=== PATIENT | male | born 1955 | race Two or more races ===

== ENCOUNTER 2020-07-13 11:01 | Outpatient (REF) | payer MEDICARE, SELFPAY | END 2020-07-13 11:02 | disposition home or self-care (01) | LOC: HO.LAB 11:01 | PROVIDERS: Visit Provider Internal Medicine | DX: Z20.828 Contact with and (suspected) exposure to other viral communicable diseases (principal) | CPT/HCPCS: C9803; U0003 ==

== ENCOUNTER 2021-03-13 15:21 | Outpatient (REF) | payer MEDICARE, SELFPAY ==
--- NOTE | 2021-03-13 16:15 | MHC.AU.ANR ---
Adult Audiological Evaluation Date of Visit: 03/13/21 Reason for Appointment: Audiological re-evaluation due to concern for decreased hearing and tinnitus. Mr. Putnam notes that his tinnitus gradually seems to be getting worse and louder. He notes that the tinnitus can be bothersome and is constant. He was previously tested in 2016 and diagnosed with a bilateral sensorineural hearing loss. 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 Does patient feel they have a hearing loss?: Yes If Yes, Which Ear?: Both Ears Has hearing been tested previously?: Yes Previous Hearing [place] [facility] [place] Normal hearing through 2000 Hz dropping to a mild SNHL at 0618-9725 Hz and rising to a mild loss at 8000 Hz. 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 Medical History: Medical History: High Blood Pressure Medical History (Other): Psoriasis Medication List: methotrexate 2.5 mg, Pravastatin 40 mg, Folic Acid 1 mg, lisinopril 5 mg Otoscopy: Right Ear: Unremarkable Left Ear: Unremarkable Tympanometry: Tympanometry performed due to: To assess integrity of the middle ear system Right Ear: Normal Middle Ear System (Type A) Left Ear: Normal Middle Ear System (Type A) Hearing Evaluation: Transducer(s) Used: Insert Earphones, Bone Conduction Method: Conventional Audiometry Stimuli Used: Pure Tones Right Ear: Description of Hearing: Normal hearing from 250-2000 Hz, sloping to a moderate sensorineural hearing loss from 5942-8844 Hz, and rising to normal hearing at 8000 Hz. Left Ear: Description of Hearing: Normal hearing from 250-2000 Hz, sloping to a moderate sensorineural hearing loss from 6046-5664 Hz, and rising to a mild hearing loss at 8000 Hz. Speech Recognition Threshold (SRT): Method Used: Monitored Live Voice Stimuli Used: Spondee Words Right Ear: 5 dBHL Left Ear: 5 dBHL Word Discrimination: Method: Recorded Lists Word Lists Used: NU-6 Right Ear: 88% at 60 dBHL Left Ear: 88% at 60 dBHL Recommendations: Audiological re-evaluation in one year. Discussed hearing aid candidacy, benefits of hearing aid use, exacerbating factors of tinnitus, and tinnitus management techniques. He is not interested in pursuing hearing aids at this time. Diagnosis: Primary Diagnosis: H90.3 Bilateral Sensorineural Hearing Loss Secondary Diagnosis: H93.13 Tinnitus, Bilateral Services Performed: Services Performed: Comprehensive Audiological Evaluation (CPT 81847) Tympanometry (CPT 56141) Signature: Provider: Johny Irby, CCC-A
== END 2021-03-13 15:22 | disposition home or self-care (01) ==
LOC: HO.SH 15:21
PROVIDERS: Visit Provider Internal Medicine
DX: H93.19 Tinnitus, unspecified ear (principal)
CPT/HCPCS: 92557; 92567

== ENCOUNTER 2021-08-25 11:11 | Outpatient (REF) | payer MEDICARE, SELFPAY ==
--- NOTE | ~2021-08-25 | XR_ITS ---
EXAMINATION: XR SHOULDER, RIGHT CLINICAL INFORMATION: Pain COMPARISON: None TECHNIQUE: AP external rotation, Grashey, scapular Y, and axillary views of the right shoulder. FINDINGS: No acute fracture or dislocation. Severe degenerative changes of the glenohumeral joint with [id number] contact and flattening of the humeral head, as well as broadening of the glenoid, with accompanying subchondral sclerosis and bulky marginal osteophytes along the inferior anatomic neck of the humerus, i.e. 'goat's vazquez' osteophytes. Moderately large acromioclavicular marginal osteophytes present as well. Soft tissues unremarkable. XR/XR shoulder RT min 2V IMPRESSION: Severe glenohumeral arthrosis. Moderate acromioclavicular marginal osteophytosis.
== END 2021-08-25 11:12 | disposition home or self-care (01) ==
LOC: HO.LAB 11:11
PROVIDERS: PCP Internal Medicine; Visit Provider Internal Medicine
DX: M77.8 Other enthesopathies, not elsewhere classified (principal)
CPT/HCPCS: 73030

== ENCOUNTER 2023-07-22 12:20 | Outpatient (AMB) | payer MEDICARE, SELFPAY ==
[2023-07-22 12:33] VITALS: BP 148/82; PULSE 68; O2SAT 98; BMI 32.6
--- NOTE | 2023-07-22 12:33 | A.OFFPC_ITS ---
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 Allergies lisinopril Allergy (Intermediate, Verified 07/22/23 12:35) cough Medication List - Last Reconciled 07/22/23 by Brooklynn Chavarria MD folic acid 1 mg PO DAILY losartan 50 mg PO DAILY methotrexate sodium 7.5 mg PO QWEEK multivitamin 1 tab PO DAILY pravastatin 40 mg PO DAILY Tobacco use date assessed: 07/22/23 Fall risk assessment: No Falls in past year Last assessed Fall Risk: 07/22/23 Dental Screening Dental Screen Date: 07/22/23 Did you have a dental visit in the last 12 months?: No Did you have a dental problem in the last 6 months where you did not have access to dental care?: No HPI Physical exam HPI Details 67-year-old obese male with psoriasis hi story hypercholesterolemia impaired glucose tolerance hypertension last seen in August 2022. Patient is here for physical exam review of the notes had blood work done January 2023 normal B12 elevated blood sugar to 110 renal function 1.3 electrolytes sodium potassium liver function within normal limits LDL goal of less than 130 patient is 131 prostate number is normal thyroid is normal no anemia. Patient follows up with Dermatology 04/13/2022 psoriasis. PAtient states pharamcy changes med to color blue PFSH Medical History (Updated 07/22/23 @ 12:46 by Brooklynn Chavarria MD) Tinnitus Blood pressure elevated without history of HTN Impaired glucose tolerance Vitamin D deficiency Obesity (BMI 30-39.9) Psoriasis Hypercholesterolemia Social History (Updated 01/19/22 @ 16:34 by Brooklynn Chavarria MD) Housing: House Alcohol intake: former Patient Tobacco Use Status: Former Tobacco user Tobacco use type: Cigarette Years Smoked: quit 1975 e-Cigarette/Vaping Use: Never Used Second Hand Smoke Exposure: No service: No Current occupational status: retired Cognitive needs: No Hearing needs: No Vision needs: Yes Questionnaire PHQ-9 Over the last 2 weeks, how often have you been bothered by any of the following problems? 1. Little interest or pleasure in doing things: not at all 2. Feeling down, depressed, or hopeless: not at all 3. Trouble falling or staying asleep, or sleeping too much: not at all 4. Feeling tired or having little energy: not at all 5. Poor appetite or overeating: not at all 6. Feeling bad about yourself - or that you are a failure or have let yourself or your family down: not at all 7. Trouble concentrating on things, such as reading the newspaper or watching television: not at all 8. Moving or speaking so slowly that other people could have noticed. Or the opposite - being so fidgety or restless that you have been moving around a lot more than usual: not at all 9. Thoughts that you would be better off or of hurting yourself in some way: not at all Total score: 0 Depression Screening Interpretation: Negative Depression Screening Done: Yes Source: Developed by Drs. Izaiah Peterson, Rahel Webster, Oli Canales and colleagues, with an educational akua from [employer]. Thrive Questionnaire Date Thrive assessed: 09/04/22 AUDIT C Alcohol Use Questionnaire (AUDIT-C) 1. How often do you have a drink containing alcohol?: Never 2. How many drinks containing alcohol do you have on a typical day when you are drinking?: 1 or 2 3. How often do you have six or more drinks on one occasion?: Never Total Score: 0 TAMRA-7 AMB Questionnaire TAMRA-7 Date TAMRA - 7 assessed: 07/22/23 Feeling nervous, anxious, or on edge: 0 = Not at all Not being able to stop or control worryin = Not at all Worrying too much about different things: 0 = Not at all Trouble relaxin = Not at all Being so restless that it is hard to sit still: 0 = Not at all Becoming easily annoyed or irritable: 0 = Not at all Feeling afraid as if something awful might happen: 0 = Not at all Total TAMRA-7 score (0-4 normal; 5-9 mild; 10-14 moderate; 15-21 severe): 0 Source: Developed by Drs. Izaiah Peterson, Rahel Webster, Oli Canales and colleagues, with an educational akua from [employer]. Review of Systems Const Denies poor appetite and Denies weakness Eyes Denies no additional complaints ENT Reports Normal hearing present, Denies dizziness, Denies nasal congestion, Denies tinnitus and Denies sore throat Card Denies chest pain, Denies syncope, Denies rapid heart rate and Denies dyspnea Resp Denies cough and Denies dyspnea GI Denies change in stool character, Reports constipation, Denies diarrhea, Denies nausea and Denies vomiting Denies dysuria and Denies urinary frequency Neuro Reports Normal hearing present, Denies confusion, Denies dizziness, Denies syncope and Denies weakness Psych Denies confusion Physical exam (Primary Care) Vital Signs: Last Vital Signs Pulse 68 07/22/23 12:33 BP 148/82 H 07/22/23 12:33 Pulse Ox 98 07/22/23 12:33 Oxygen Delivery Method Room Air 07/22/23 12:33 BMI result Body Mass Index 32.6 Tobacco/Smoking Status: Tobacco use Status Tobacco use date assessed 07/22/23 07/22/23 12:37 Patient Tobacco Use Status Former Tobacco user 07/22/23 12:37 Tobacco use type Cigarette 07/22/23 12:37 e-Cigarette/Vaping Use Never Used 07/22/23 12:37 PHQ-9: PHQ-9 Score PHQ-9: Total score 0 07/22/23 12:37 Depression Screening Interpretation: Negative Thrive Assessment: Date of Thrive Assessment Date Thrive assessed 09/04/22 07/22/23 12:37 Const General: No confusion Orientation/consciousness: No confusion HENMT Head: Yes normocephalic Ears: external ears normal and TM's normal bilaterally Face and sinus: Yes normal facial exam Mouth: moist mucous membranes Throat: Yes tonsils normal Eyes Conjunctivae: conjunctivae normal Pupils: Equal, round and reactive pupils present and Pupil accommodation reflex normal Direct Ophthalmoscopy: normal light reflex Neck Neck: No lymphadenopathy Thyroid: Thyroid normal Chest Chest palpation & inspection: normal inspection of the chest Resp Effort & Inspection: normal respiratory effort and no audible wheezes Auscultation: clear to auscultation bilaterally, no crackles, no wheezes and lung sounds not diminished Cardio Rate: regular rate Rhythm: regular rhythm Peripheral pulses: radial pulses present and dorsalis pedis present GI Other: cologuard requested Palpation (GI): no masses Auscultation: normal bowel sounds and normoactive bowel sounds Rectal Exam - Male: Yes deferred Other: decline Skin General skin exam: no rashes or lesions noted Rashes: no rashes Neuro General: No confusion Cranial nerves: Yes Equal, round and reactive pupils present and Yes Normal hearing present Cognition (Neuro): normal cognition Gait exam (Neuro): Normal gait present Motor exam (neuro): 5/5 motor strength present throughout Deep tendon reflexes (DTR's): Right brachioradialis reflex intensity grade: 2+, Left brachioradialis reflex intensity grade: 2+, Right patellar reflex intensity grade: 2+ and Left patellar reflex intensity grade: 2+ Extrem General: No edema Assessment and Plan Assessment & Plan (1) Annual physical exam: Code(s): Z00.00 - Encounter for general adult medical examination without abnormal findings (2) Obesity (BMI 30-39.9): Code(s): E66.9 - Obesity, unspecified Plan: Diet and exercise (3) Psoriasis: Code(s): L40.9 - Psoriasis, unspecified Plan: Continue to follow-up with dermatology (4) Hypercholesterolemia: Code(s): E78.00 - Pure hypercholesterolemia, unspecified Plan: Avoid fried foods, chicken skin, eggs, butter margarine, pastries and meat. Be it pork or beef they have a lot of cholesterol LDL goal of less than 130 and triglyceride of less than 150. January 2023 last blood work on pravastatin 40 mg once a day (5) Colonoscopy refused: Code(s): Z53.20 - Procedure and treatment not carried out because of patient's decision for unspecified reasons (6) Impaired glucose tolerance: Code(s): R73.02 - Impaired glucose tolerance (oral) Plan: Decrease the amount of carbohydrate intake, pasta, bread, rice and potatoes are all sugar and that is aside from all the sweet stuff, remember that fruits are good but they are Sweet also. January 2023 last blood work (7) Hypertension: Code(s): I10 - Essential (primary) hypertension Plan: Continue with blood pressure medication. Decrease salt intake and exercise patient takes losartan 50 mg once a day. advised to monitor BP at home and record (8) Colon cancer screening: Code(s): Z12.11 - Encounter for screening for malignant neoplasm of colon (9) Primary osteoarthritis, right shoulder: Code(s): M19.011 - Primary osteoarthritis, right shoulder Orders: Orders Comprehensive Met. Panel 6 Months R73.02 - Impaired glucose tolerance (oral) Free T4 (Free Thyroxine) 6 Months E78.00 - Pure hypercholesterolemia, unsp ecified Hemoglobin A1c 6 Months R73.02 - Impaired glucose tolerance (oral) Lipid Panel 6 Months E78.00 - Pure hypercholesterolemia, unspecified Thyroid Stimulating Hormone 6 Months E78.00 - Pure hypercholesterolemia, unspecified Vitamin B12 and Folate 6 Months E78.00 - Pure hypercholesterolemia, unspecified Prostate Specific Antigen Scr 6 Months E78.00 - Pure hypercholesterolemia, unspecified Complete Blood Count Auto Diff 6 Months E78.00 - Pure hypercholesterolemia, unspecified Referrals Cologuard Test Z12.11 - Encounter for screening for malignant neoplasm of colon Coding Level of Care Code Est Pt Prev Care >65y(25088) Diagnoses Annual physical exam Z00.00 Obesity (BMI 30-39.9) E66.9 Psoriasis L40.9 Hypercholesterolemia E78.00 Colonoscopy refused Z53.20 Impaired glucose tolerance R73.02 Hypertension I10 Colon cancer screening Z12.11 Primary osteoarthritis, right shoulder M19.011
== END 2023-07-22 13:11 | disposition home or self-care (01) ==
PROVIDERS: PCP Internal Medicine; Visit Provider Internal Medicine
DX: Z00.00 Encounter for general adult medical examination without abnormal findings (principal); E66.9 Obesity, unspecified; Z68.32 Body mass index [BMI] 32.0-32.9, adult; L40.9 Psoriasis, unspecified; E78.00 Pure hypercholesterolemia, unspecified; Z53.20 Procedure and treatment not carried out because of patient's decision for unspecified reasons; R73.02 Impaired glucose tolerance (oral); I10 Essential (primary) hypertension; Z12.11 Encounter for screening for malignant neoplasm of colon; M19.011 Primary osteoarthritis, right shoulder
CPT/HCPCS: 99397

== ENCOUNTER 2023-10-30 14:21 | Outpatient (AMB) | payer MEDICARE, SELFPAY ==
--- NOTE | 2023-10-30 14:23 | MHC.OFFVIS ---
Intake Vital Signs 10/30/23 14:31 Height 5 ft 4 in Weight 190 lb 7.67 oz BMI 32.7 BP 127/76 Blood Pressure Location Lt brachial Position Sitting Pulse 85 Intake Visit Reasons: other fecal abnormalities Intake Note: Patient is seen in office for evaluation and treatment of fecal abnormalities. Pt c/o: states had a stool test done and was refer to GI due to results, denies n/v/d/c, no GI symptoms Residential Case Manager Required: No Accompanied by: Self / Same As Patient Allergies lisinopril Allergy (Intermediate, Verified 10/30/23 14:28) cough HPI other fecal abnormalities HPI Details 68-year-old male here for a preprocedural meeting in the context of a positive Cologuard test to discuss a colonoscopy. He is referred by Brooklynn Chavarria of [facility] [place] primary care. PMX Obesity Hypertension High cholesterol Psoriasis Osteoarthritis of the right shoulder * SURGICAL HISTORY Pt denies * ALLERGIES Lisinopril - cough * [employer] LABS: None in our system since 2019 TODAY'S VISIT This is his first colonoscopy. He had a positive Cologuard test that prompted the referral. He denies any bowel or upper GI problems He denies any cardiac or respiratory problems. He is completely naive to anesthesia and sedation No ID problems. One of his older brothers of a cancer, but he does not know what type, no polyps known. [facility] Medical History (Updated 10/30/23 @ 14:25 by AMY Mccord) Tinnitus Blood pressure elevated without history of HTN Impaired glucose tolerance Vitamin D deficiency Obesity (BMI 30-39.9) Psoriasis Hypercholesterolemia Social History Housing: House Alcohol intake: former Patient Tobacco Use Status: Former Tobacco user Tobacco use type: Cigarette Years Smoked: quit 1975 e-Cigarette/Vaping Use: Never Used Second Hand Smoke Exposure: No service: No Current occupational status: retired Cognitive needs: No Hearing needs: No Vision needs: Yes Review of Systems Const Denies fatigue, Denies fever(s), Denies night sweats, Denies poor appetite and Denies weight loss Eyes Reports requires corrective lenses ENT Reports Normal hearing present, Denies dental pain, Denies dysphagia, Denies hearing loss, Denies mouth pain, Denies odynophagia, Denies throat swelling, Denies tongue swelling and Reports other (Dentition adequate) GI Details: Denies abdominal pain, Denies melena, Denies bloating, Denies hematochezia, Denies constipation, Denies GI cramping, Denies dysphagia, Denies excessive flatus, Denies early satiety, Denies heartburn, Denies diarrhea, Denies nausea, Denies odynophagia, Denies vomiting and Denies hematemesis Skin/Breast Denies pruritus, Denies lesions, Denies rash and Denies jaundice Neuro Reports Normal hearing present and Denies Abnormal speech present Endo Denies fatigue Aller/Immun Denies throat swelling and Denies tongue swelling Physical Exam Vital Signs: Last Vital Signs Pulse 85 10/30/23 14:31 BP 127/76 10/30/23 14:31 BMI result Body Mass Index 32.7 Const General: cooperative, no acute distress, well developed and well groomed Nutritional Appearance: well nourished and obese Orientation/consciousness: oriented to person, oriented to place and oriented to time Limitations: No language barrier HEENT Head: Yes normocephalic and Yes atraumatic Eyes General: appearance normal, both eyes and all related structures Pupils: Equal, round and reactive pupils present Neck Neck: Yes normal visual inspection and Yes no lymphadenopathy Thyroid: Thyroid normal Resp Effort & Inspection: normal respiratory effort and able to speak in complete sentences Auscultation: clear to auscultation bilaterally Cardio Rate: regular rate Rhythm: regular rhythm Heart sounds: Normal, physiologic split S2 sound present Peripheral pulses: radial pulses present and posterior tibial pulses present GI Inspection: No distended, No Abdominal panniculus present and Yes obesity Palpation (GI): Soft to palpation, nontender, no guarding, not rigid and No hepatosplenomegaly present Percussion: Yes normal to percussion Auscultation: normal bowel sounds Rectal Exam - Male: Yes deferred Skin General skin exam: no rashes or lesions noted, turgor normal, skin not dry, no jaundice, No spider nevi and no striae Rashes: no rashes Nails: normal Neuro General: oriented to person, oriented to place and oriented to time Cranial nerves: Yes Equal, round and reactive pupils present and Yes Normal hearing present Speech: No Abnormal speech present Extrem General: Yes normal to inspection, No clubbing, No cyanosis, Yes edema (Mild pitting) and Yes venous stasis dermatitis (Mild) Psych Appearance: grossly normal and well kempt Mental Status: mental status grossly normal Speech and movement: Normal speech and movement present Affect: normal affect Attitude: cooperative Thought process: Normal thought process present and not confabulating Thought content: Normal thought content present Insight: Fair insight present (Psych) Judgement: Fair judgement present (Psych) Assessment & Plan Assessment & Plan (1) Positive colorectal cancer screening using Cologuard test: Code(s): R19.5 - Other fecal abnormalities (2) Pre-op examination: Code(s): Z01.818 - Encounter for other preprocedural examination Plan This is his first colonoscopy. He had a positive Cologuard test that prompted the referral. He denies any bowel or upper GI problems He denies any cardiac or respiratory problems. He is completely naive to anesthesia and sedation No ID problems. One of his older brothers of a cancer, but he does not know what type, no polyps known. Orders: Orders Comprehensive Met. Panel Today R19.5 - Other fecal abnormalities, Z01.818 - Encounter for other preprocedural examination Colonoscopy - GI Use Only Today R19.5 - Other fecal abnormalities, Z01.818 - Encounter for other preprocedural examination Complete Blood Count Auto Diff Today R19.5 - Other fecal abnormalities, Z01.818 - Encounter for other preprocedural examination Medications: New bisacodyl (Dulcolax (bisacodyl)) 10 mg (2 x 5 mg) PO BEDTIME 4 tabs 0RF 2 days peg 3350-electrolytes 236-22.74-6.74 -5.86 gram (Golytely) until fecal effluent is clear; do not exceed a total volume of 2,000 mL 240 mL PO Q10M 4,000 mL 0RF 1 day Z12.11 - Encounter for screening for malignant neoplasm of colon Coding Level of Care Code New Pt Level 3 (26052) Diagnoses Positive colorectal cancer screening using Cologuard test R19.5 Pre-op examination Z01.818
[2023-10-30 14:31] VITALS: BP 127/76; PULSE 85; BMI 32.7
== END 2023-10-30 14:56 | disposition home or self-care (01) ==
PROVIDERS: PCP Internal Medicine; Visit Provider Nurse Practitioner
DX: R19.5 Other fecal abnormalities (principal); Z01.818 Encounter for other preprocedural examination
CPT/HCPCS: 99203

== ENCOUNTER → 2023-10-30 14:21 | Outpatient (BNVA) | payer MEDICARE, SELFPAY | PROVIDERS: PCP Internal Medicine; Visit Provider Nurse Practitioner | DX: Z01.818 Encounter for other preprocedural examination (principal); R19.5 Other fecal abnormalities | CPT/HCPCS: 99202 ==

== ENCOUNTER 2024-01-21 13:12 | Outpatient (AMB) | payer MEDICARE, SELFPAY ==
--- NOTE | 2024-01-21 13:30 | MHC.PC.OV ---
Vital Signs 01/21/24 13:31 Height 5 ft 4 in Weight 190 lb BMI 32.6 BP 138/70 Blood Pressure Location Lt brachial Position Sitting Pulse 66 Pulse Source Pulse Oximeter Pulse Oximetry (%) 96 Oxygen Delivery Method Room Air Intake Visit Reasons: IGT, Cholesterol, HTN Allergies lisinopril Allergy (Intermediate, Verified 01/21/24 13:31) cough Medication List - Last Reconciled 01/21/24 by Brooklynn Chavarria MD bisacodyl (Dulcolax (bisacodyl)) 10 mg (2 x 5 mg) PO BEDTIME 2 days folic acid 1 mg PO DAILY losartan 100 mg PO DAILY methotrexate sodium 7.5 mg PO QWEEK multivitamin 1 tab PO DAILY peg 3350-electrolytes 236-22.74-6.74 -5.86 gram (Golytely) 240 mL PO Q10M 1 day pravastatin 40 mg PO DAILY Tobacco use date assessed: 07/22/23 Fall risk assessment: No Falls in past year Last assessed Fall Risk: 01/21/24 Dental Screening Dental Screen Date: 01/21/24 Did you have a dental visit in the last 12 months?: No Did you have a dental problem in the last 6 months where you did not have access to dental care?: No Was dental information given to patient?: Patient has dentist HPI IGT, Cholesterol, HTN HPI Details 68-year-old obese male with hypercholesterolemia impaired glucose tolerance hypertension last seen in July 2023 for physical exam. Patient is here for follow-up patient had a positive Cologuard 07/2023 but has declined colonoscopy. But patient did see Gastroenterology. Patient follows up with Dermatology for psoriasis on methotrexate and folic acid clobetasol and Zoryve. Blood work was requested [facility] Medical History (Updated 01/21/24 @ 14:01 by Brooklynn Chavarria MD) Colon cancer screening Tinnitus Blood pressure elevated without history of HTN Impaired glucose tolerance Vitamin D deficiency Obesity (BMI 30-39.9) Psoriasis Hypercholesterolemia Social History Housing: House Alcohol intake: former Patient Tobacco Use Status: Former Tobacco user Tobacco use type: Cigarette Years Smoked: quit 1975 e-Cigarette/Vaping Use: Never Used Second Hand Smoke Exposure: No service: No Current occupational status: retired Cognitive needs: No Hearing needs: No Vision needs: Yes Questionnaire PHQ-9 Over the last 2 weeks, how often have you been bothered by any of the following problems? 1. Little interest or pleasure in doing things: not at all 2. Feeling down, depressed, or hopeless: not at all 3. Trouble falling or staying asleep, or sleeping too much: not at all 4. Feeling tired or having little energy: not at all 5. Poor appetite or overeating: not at all 6. Feeling bad about yourself - or that you are a failure or have let yourself or your family down: not at all 7. Trouble concentrating on things, such as reading the newspaper or watching television: not at all 8. Moving or speaking so slowly that other people could have noticed. Or the opposite - being so fidgety or restless that you have been moving around a lot more than usual: not at all 9. Thoughts that you would be better off or of hurting yourself in some way: not at all Total score: 0 Depression Screening Interpretation: Negative Depression Screening Done: Yes Source: Developed by Drs. Izaiah Peterson, Rahel Webster, Oli Canales and colleagues, with an educational akua from [employer] Thrive Questionnaire Date Thrive assessed: 01/21/24 I am a: Patient What is your living situation today?: I have a steady place to live Within the past 12 months, did the food you bought not last and you didn't have the money to get more?: Never true Within the past 12 months, did you worry whether your food would run out before you got money to buy more?: Never true Do you have trouble paying for medicines?: No Do you have trouble getting transportation to medical appointments?: No Do you have trouble paying your heating and electricity bill?: No Do you have trouble taking care of your child, family member or friend?: No Do you have trouble with day-to-day activities such as bathing, preparing meals, shopping, managing finances, etc.?: No Are you currently unemployed and looking for a job?: No Are you interested in more education?: No Currently or been in a relationship where the following occur: No concerns reported THRIVE Score: 0 AUDIT C Alcohol Use Questionnaire (AUDIT-C) 1. How often do you have a drink containing alcohol?: Never 2. How many drinks containing alcohol do you have on a typical day when you are drinking?: 1 or 2 3. How often do you have six or more drinks on one occasion?: Never Total Score: 0 TAMRA-7 AMB Questionnaire TAMRA-7 Date TAMRA - 7 assessed: 07/22/23 Source: Developed by Drs. Izaiah Peterson, Rahel Webster, Oli Canales and colleagues, with an educational akua from [employer] Physical exam (Primary Care) Vital Signs: Last Vital Signs Pulse 66 01/21/24 13:31 BP 138/70 01/21/24 13:31 Pulse Ox 96 01/21/24 13:31 Oxygen Delivery Method Room Air 01/21/24 13:31 BMI result Body Mass Index 32.6 Tobacco/Smoking Status: Tobacco use Status Tobacco use date assessed 07/22/23 01/21/24 13:36 Patient Tobacco Use Status Former Tobacco user 01/21/24 13:36 Tobacco use type Cigarette 01/21/24 13:36 e-Cigarette/Vaping Use Never Used 01/21/24 13:36 PHQ-9: PHQ-9 Score PHQ-9: Total score 0 01/21/24 13:36 Depression Screening Interpretation: Negative Thrive Assessment: Date of Thrive Assessment Date Thrive assessed 01/21/24 01/21/24 13:36 Currently or been in a relationship where the following occur: No concerns reported Const General: alert; No acute distress Eyes Conjunctivae: conjunctivae normal Resp Auscultation: clear to auscultation bilaterally Cardio Rate: regular rate Rhythm: regular rhythm GI Inspection: Yes normal to inspection Extrem General: Yes normal to inspection and No edema Assessment and Plan Assessment & Plan (1) Positive colorectal cancer screening using Cologuard test: Code(s): R19.5 - Other fecal abnormalities Plan: Patient has a scheduled colonoscopy in February 06 2024 (2) Psoriasis: Code(s): L40.9 - Psoriasis, unspecified Plan: Patient has been seeing Dermatology on methotrexate and folic acid (3) Impaired glucose tolerance: Code(s): R73.02 - Impaired glucose tolerance (oral) Plan: Decrease the amount of carbohydrate intake, pasta, bread, rice and potatoes are all sugar and that is aside from all the sweet stuff, remember that fruits are good but they are Sweet also. (4) Hypercholesterolemia: Code(s): E78.00 - Pure hypercholesterolemia, unspecified Plan: Avoid fried foods, chicken skin, eggs, butter margarine, pastries and meat. Be it pork or beef they have a lot of cholesterol LDL goal of less than 130 and triglyceride of less than 150 last blood work was done in 01/31/2023 patient is reminded about blood work (5) Hypertension: Code(s): I10 - Essential (primary) hypertension Plan: Continue with blood pressure medication. Decrease salt intake and exercise on losartan 50 mg once a day Medications: Changed From losartan 50 mg PO DAILY 90 tabs 3RF I10 - Essential (primary) hypertension To losartan 100 mg PO DAILY 30 tabs 3RF I10 - Essential (primary) hypertension Coding Level of Care Code Est Pt Level 4 (58006) Diagnoses Positive colorectal cancer screening using Cologuard test R19.5 Psoriasis L40.9 Impaired glucose tolerance R73.02 Hypercholesterolemia E78.00 Hypertension I10
[2024-01-21 13:31] VITALS: BP 138/70; PULSE 66; O2SAT 96; BMI 32.6
== END 2024-01-21 14:27 | disposition home or self-care (01) ==
PROVIDERS: PCP Internal Medicine; Visit Provider Internal Medicine
DX: R19.5 Other fecal abnormalities (principal); L40.9 Psoriasis, unspecified; R73.02 Impaired glucose tolerance (oral); E78.00 Pure hypercholesterolemia, unspecified; I10 Essential (primary) hypertension
CPT/HCPCS: 99214

== ENCOUNTER → 2024-02-06 11:20 | Outpatient (BNV) | payer MEDICARE, SELFPAY | PROVIDERS: PCP Internal Medicine; Visit Provider Internal Medicine Gastroenterology | DX: Z12.11 Encounter for screening for malignant neoplasm of colon (principal); R19.5 Other fecal abnormalities; D12.0 Benign neoplasm of cecum; C18.7 Malignant neoplasm of sigmoid colon; K63.5 Polyp of colon; K62.1 Rectal polyp | CPT/HCPCS: 45380; 45381; 45385 ==

== ENCOUNTER 2024-02-06 13:18 | Day surgery (SDC) | payer MEDICARE, SELFPAY ==
[2024-02-04 09:06] VITALS: BMI 32.6
--- NOTE | 2024-02-05 11:58 | HO.ANESPROP2 ---
Documented by User: Theresa Duke NP 02/05/24 11:59 HPI - Anesthesia Eval Consult details Narrative: 68yo M for Colonoscopy PMFSH Active Problems Active Problems: All Active Problems Pre-op examination (Acute) Positive colorectal cancer screening using Cologuard test (Acute) Annual physical exam (Acute) Primary osteoarthritis, right shoulder (Acute) Shoulder tendinitis (Acute) Hypertension (Acute) Tinnitus (Acute) Impaired glucose tolerance (Acute) Colonoscopy refused (Acute) Obesity (BMI 30-39.9) (Acute) Psoriasis (Acute) Hypercholesterolemia (Acute) Past Medical History Medical History Frozen shoulder syndrome Skin tag Colon cancer screening Tinnitus Blood pressure elevated without history of HTN Impaired glucose tolerance Vitamin D deficiency Obesity (BMI 30-39.9) Psoriasis Hypercholesterolemia Surgical History Surgical History Hx of colonoscopy Social History Social History Housing: House Alcohol intake: former Patient Tobacco Use Status: Former Tobacco user Tobacco use type: Cigarette Years Smoked: quit 1976 e-Cigarette/Vaping Use: Never Used Second Hand Smoke Exposure: No Are you DNR?: No Advance Directives: No Advance Directives Information Provided: No Advance Directives on File: No Nutrition Risks: No Nutritional Risk service: No Current occupational status: retired Cognitive needs: No Hearing needs: No Vision needs: Yes Meds Allergies Allergy/AdvReac Type Severity Reaction Status Date / Time lisinopril Allergy Intermediate cough Verified 01/21/24 13:31 Home Medications ?Medication ?Instructions ?Recorded ?Confirmed ?Last Taken ?Type folic acid 1 mg tablet 1 mg PO DAILY 12/27/20 02/06/24 Unknown History methotrexate sodium 2.5 mg tablet 7.5 mg PO QWEEK 12/27/20 02/06/24 01/31/24 History multivitamin 1 tab PO DAILY 07/22/23 02/06/24 Unknown History Exam Height,Weight and Vital Signs: Height 5 ft 4 in Weight 86.183 kg Assessment and Plan Assessment Anesthesia Assessment: Chart Reviewed Documented by User: Rahel Mahan MD 02/06/24 09:56 PMFSH Past Medical History Medical History Frozen shoulder syndrome Skin tag Colon cancer screening Tinnitus Blood pressure elevated without history of HTN Impaired glucose tolerance Vitamin D deficiency Obesity (BMI 30-39.9) Psoriasis Hypercholesterolemia Family History Family history of problems with anesthesia: No Surgical History Surgical History Hx of colonoscopy History of Problems with Anesthesia: Yes Social History Social History Housing: House Alcohol intake: former Patient Tobacco Use Status: Former Tobacco user Tobacco use type: Cigarette Years Smoked: quit 1976 e-Cigarette/Vaping Use: Never Used Second Hand Smoke Exposure: No Are you DNR?: No Advance Directives: No Advance Directives Information Provided: No Advance Directives on File: No Nutrition Risks: No Nutritional Risk service: No Current occupational status: retired Cognitive needs: No Hearing needs: No Vision needs: Yes Meds Allergies Allergy/AdvReac Type Severity Reaction Status Date / Time lisinopril Allergy Intermediate cough Verified 01/21/24 13:31 Home Medications ?Medication ?Instructions ?Recorded ?Confirmed ?Last Taken ?Type folic acid 1 mg tablet 1 mg PO DAILY 12/27/20 02/06/24 Unknown History methotrexate sodium 2.5 mg tablet 7.5 mg PO QWEEK 12/27/20 02/06/24 01/31/24 History multivitamin 1 tab PO DAILY 07/22/23 02/06/24 Unknown History Exam Airway Mallampati Class: III TM Dist: >3cm Neck ROM: Limited Heart: rrr Lungs: cta Assessment and Plan Assessment Anesthesia Assessment: Anesthesia Plan Discussed Final Anesthetic Review Family History of Problems with Anesthesia: No History of Problems with Anesthesia: Yes NPO: Yes ASA Class: III Final Preanesthetic Review: No Changes in Pt Med Stat, Meds/Allgs Chart Reviewed, Consent Obtained/Reviewed and Anes Risks/Benef Reviewed Patient Risk: Intermediate Procedure Risk: Low Anesthetic Plan Anesthetic Plan: MAC: Disposition: Standard PACU
[2024-02-06 09:04] VITALS: BP 109/76; PULSE 78; RESP 16; TEMP 36.9; O2SAT 95
--- NOTE | 2024-02-06 11:14 | MHC.SHP ---
Pre-Procedural Eval Section A - 24 Hr Update-Section A only Date of Service: 02/06/24 Section B - Complete if H&P > 30 days Chief Complaint: Other fecal abnormalities Relevant Family History (Specify if Yes): No Relevant Social History: None Present Medications: see Short Stay Collaborative assessment Medical History: Significant History (Frozen shoulder syndrome Skin tag Colon cancer screening Tinnitus Blood pressure elevated without history of HTN Impaired glucose tolerance Vitamin D deficiency Obesity (BMI 30-39.9) Psoriasis Hypercholesterolemia) History of Previous Operations: Relevant previous surgery/procedure and date(s) (Hx of colonoscopy) Allergies: Allergies Allergy/AdvReac Type Severity Reaction Status Date / Time lisinopril Allergy Intermediate cough Verified 01/21/24 13:31 Review of Systems Sugical H&P ROS: Negative: Constitution, Cardiovascular, Respiratory, Neurological, Psychiatric, Hem-Onc, Allergic/Immunologic, Gastrointestinal, Genitourinary, Musculoskeletal, Integumentary, Endocrine and Eyes/Ears/Nose/Throat Exam Surgical H&P Exam: Normal: HEENT, Normal: Heart, Normal: Lungs, Normal: Extremities, Normal: Abdomen, Normal: Skin and Normal: Neurological Plan Diagnosis/Plan: Unchanged I have reviewed the history and physical and performed a pertinent physical examination on my patient. No changes have occurred unless specified. Time Spent With Patient Time: Total time managing care of this patient today ____ minutes.
--- NOTE | 2024-02-06 11:15 | HO.OPN-COLON ---
Colonoscopy Operative Note Operative Note Date of Service: 02/06/24 Narrative: Operative Information Procedure Description: Colonoscopy Indication: pos cologuard Anesthesia: MAC COLONOSCOPY Instrument: Olympus variable stiffness Adult scope 190L Colonoscopy Monitoring: Vital signs and clinical assessment, continuous EKG monitoring, Pulse oximetry, Carbon Dioxide monitoring and blood pressure monitoring were done throughout the procedure. Colon withdrawal time was 22 minutes. Procedure: The patient was placed in the left lateral decubitis position and pre-procedure medications were administered. After a digital rectal examination of the ano-rectum, the video colonoscope was inserted into the rectum and advanced through the colon to the cecum/TI. The colonoscope was slowly withdrawn in a retrograde panoramic fashion and the colon mucosa was carefully examined including a retroflexed view of the rectum. Findings and interventions are described below. Procedure Difficulty: easy Findings: Terminal Ileum-normal Cecum: 5-6 mm sessile polyp removed with cold forceps Ascending Colon: 6-8 mm sessile polyp removed with cold snare Transverse Colon -normal Descending Colon: 6-7 mm sessile polyp removed with cold forceps Sigmoid Colon: moderate diverticulosis. At 28 cm from anal verge, a large pedunculated polyp about 20 mm noted, stalk injected with few cc epinephrine then removed with hot snare with x3 ultra clips applied to the stalk base to prevent bleeding. Rectum: Retroflexion with small internal hemorrhoids seen, grade I, x 2 sessile polyps 6-9 mm removed with cold snare with one area clipped x 1 due to oozing. Anorectum - normal Intervention: cold snare, cold forcep, hot snare polypectomy, epinephrine injection, clip placement Colon preparation: Battiest Bowel Preparation Scale Right colon; 2 Transverse colon: 2 Left colon; 2 (0 = Unprepared colon segment with mucosa not seen due to solid stool that cannot be cleared. 1 = Portion of mucosa of the colon segment seen, but other areas of the colon segment not well seen due to staining, residual stool and/or opaque liquid. 2 = Minor amount of residual staining, small fragments of stool and/or opaque liquid, but mucosa of colon segment seen well. 3 = Entire mucosa of colon segment seen well with no residual staining, small fragments of stool or opaque liquid) Impression and Post Procedure Diagnosis: diverticulosis colon polyps internal hemorrhoids Plan: High fiber diet leaflet Avoid straining at stool, epsom salts and sitz bath, anusol supps or cream Repeat Colonoscopy in 6-12 months due to polyps found today or earlier if clinically indicated Above findings were reviewed with the patient and relevant handouts were provided if indicated.
[2024-02-06 12:03] VITALS: BP 137/76; PULSE 83; RESP 16; TEMP 37; O2SAT 96
[2024-02-06 12:18] VITALS: BP 133/88; PULSE 72; RESP 18; TEMP 37; O2SAT 97
== END 2024-02-06 13:21 | disposition home or self-care (01) ==
LOC: HO.SSS 13:18
PROVIDERS: PCP Internal Medicine; Visit Provider Internal Medicine Gastroenterology
PROC: 0DJD8ZZ Inspection of Lower Intestinal Tract, Via Natural or Artificial Opening Endoscopic (ICD-10-PCS; CPT 45378; principal; 2024-02-06 11:20)
DX: R19.5 Other fecal abnormalities (principal); C18.7 Malignant neoplasm of sigmoid colon; D12.0 Benign neoplasm of cecum; D12.2 Benign neoplasm of ascending colon; K63.5 Polyp of colon; D12.8 Benign neoplasm of rectum; K57.30 Diverticulosis of large intestine without perforation or abscess without bleeding; K64.0 First degree hemorrhoids; I10 Essential (primary) hypertension; E78.00 Pure hypercholesterolemia, unspecified; R73.02 Impaired glucose tolerance (oral); L40.9 Psoriasis, unspecified; H93.19 Tinnitus, unspecified ear; M75.01 Adhesive capsulitis of right shoulder; E55.9 Vitamin D deficiency, unspecified; E66.9 Obesity, unspecified; Z68.32 Body mass index [BMI] 32.0-32.9, adult; Z79.899 Other long term (current) drug therapy; Z88.8 Allergy status to other drugs, medicaments and biological substances; Z87.891 Personal history of nicotine dependence
CPT/HCPCS: 45385; 45380; 45381; 88305; 88341; 88342; J0171; J2704

== ENCOUNTER 2024-02-14 11:55 | Outpatient (AMB) | payer MEDICARE, SELFPAY ==
--- NOTE | 2024-02-14 12:02 | MHC.OFFVIS ---
Vital Signs 02/14/24 12:05 Height 5 ft 4 in Weight 185 lb 3.013 oz BMI 31.8 Blood Pressure Location Lt brachial Position Sitting Intake Visit Reasons: + on per Lee Intake Note: Kiran presents in the office a a add on regarding cancer of the colon. CC: He states that he is feeling good and not having any concerns at this time. Allergies lisinopril Allergy (Intermediate, Verified 02/14/24 12:03) cough HPI HPI + on per Lee: Details: 68 yr old m here for f/u Reviewed colonoscopy results, large pedunculated polyp with adenoca, 5 mm margin free of neoplasia but LVI likely per pathologist he has no symptoms EXAM: GENERAL: The patient is well developed and nontoxic. VITAL SIGNS:see workflow HEENT: Nonicteric sclerae, PERRLA, EOMI. Oropharynx clear. Moist mucous membranes. Conjunctivae appear well perfused. No thyroid mass. CHEST: Chest wall is nontender. HEART: Regular rate and rhythm without murmurs. LUNGS: Clear to auscultation bilaterally. ABDOMEN: Soft, positive bowel sounds, nontender, no organomegaly.no flank tenderness SKIN: No rash, no excessive bruising, petechiae, or purpura. NEUROLOGIC: Cranial nerves II-XII intact without motor/sensory deficit. Psych: normal affect A/P; 1/ Colon cancer, sigmoid, plan: / --reviewed path, will refer surgery, will defer ct scan and CEA to Dr Pope, also refer onc, he is not sure about surgery, if he declines which I advised against if this is the official rec then I can repeat colonoscopy and rebiopsy the area and he would need close colonoscopic surveillance PFSH Medical History Frozen shoulder syndrome Skin tag Colon cancer screening Tinnitus Blood pressure elevated without history of HTN Impaired glucose tolerance Vitamin D deficiency Obesity (BMI 30-39.9) Psoriasis Hypercholesterolemia Surgical History Hx of colonoscopy Social History Housing: House Alcohol intake: former Patient Tobacco Use Status: Former Tobacco user Tobacco use type: Cigarette Years Smoked: quit 1976 e-Cigarette/Vaping Use: Never Used Second Hand Smoke Exposure: No service: No Current occupational status: retired Cognitive needs: No Hearing needs: No Vision needs: Yes Physical Exam Vital Signs: BMI result Body Mass Index 31.8 Assessment & Plan Assessment & Plan (1) Positive colorectal cancer screening using Cologuard test: Code(s): R19.5 - Other fecal abnormalities Category: Medical Plan: see above Coding Level of Care Code Est Pt Level 3 (14577) Diagnoses Positive colorectal cancer screening using Cologuard test R19.5
[2024-02-14 12:05] VITALS: BMI 31.8
== END 2024-02-14 13:31 | disposition home or self-care (01) ==
PROVIDERS: PCP Internal Medicine; Visit Provider Internal Medicine Gastroenterology
DX: R19.5 Other fecal abnormalities (principal)
CPT/HCPCS: 99213

== ENCOUNTER → 2024-02-14 11:55 | Outpatient (BNVA) | payer MEDICARE, SELFPAY | PROVIDERS: PCP Internal Medicine; Visit Provider Internal Medicine Gastroenterology | DX: R19.5 Other fecal abnormalities (principal) | CPT/HCPCS: 99212 ==

== ENCOUNTER 2024-02-17 15:28 | Outpatient (REF) | payer MEDICARE, SELFPAY ==
[2024-02-17 17:34] LABS: Blood Urea Nitrogen 18 mg/dL (9-16); Estimated Glomerular Filt Rate > 60
[2024-02-17 17:48] LABS: Carcinoembryonic Antigen < 1.73 ng/mL
== END 2024-02-17 15:29 | disposition home or self-care (01) ==
LOC: HO.LAB 15:28
PROVIDERS: PCP Internal Medicine; Visit Provider Surgery
DX: C18.9 Malignant neoplasm of colon, unspecified (principal)
CPT/HCPCS: 36415; 82378; 82565; 84520; 99202

== ENCOUNTER 2024-02-17 15:28 | Outpatient (AMB) | payer MEDICARE, SELFPAY ==
[2024-02-17 15:37] VITALS: BP 132/75; PULSE 67; BMI 31.8
--- NOTE | 2024-02-17 15:37 | A.OFFVIS_ITS ---
Vital Signs 02/17/24 15:37 Height 5 ft 4 in Weight 185 lb 3.013 oz BMI 31.8 BP 132/75 Blood Pressure Location Rt brachial Position Sitting Pulse 67 Intake Visit Reasons: colon cancer s/p colo (Jesus) Intake Note: This patient was referred by for colon carcinoma. Patient c/o; reports no changes in bowel habits, reports no rectal bleeding or pain, reports no rectal pressure. 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 Lee for a positive Cologuard test. There was a large pedunculated polyp about 20 mm, and a stalk removed with hot snare at the level of 28 cm. The path report had shown an adenocarcinoma. There were other small polyps that were removed throughout the colon. There was a tubular adenoma removed in the cecum. There was note of a sessile serrated polyp removed in the right colon. There was a hyperplastic polyp removed from the left colon. There was note of a tubular adenoma in the rectum as well without any dysplasia. He denies any GI complaints. [facility] Medical History Colon cancer Frozen shoulder syndrome Skin tag Colon cancer screening Tinnitus Blood pressure elevated without history of HTN Impaired glucose tolerance Vitamin D deficiency Obesity (BMI 30-39.9) Psoriasis Hypercholesterolemia Surgical History Hx of colonoscopy Social History (Updated 03/05/24 @ 13:09 by Gaudencio Barron) Household Members: Spouse Housing: House Alcohol intake: former Patient Tobacco Use Status: Former Tobacco user Tobacco use type: Cigarette Years Smoked: quit 1975 e-Cigarette/Vaping Use: Never Used Second Hand Smoke Exposure: No Use of substances other than those prescribed or required for medical reasons: No Do you feel safe in your current relationship?: Yes Do you have thoughts of harming others: None Do you have a plan to hurt others: No Plan service: No Current occupational status: retired Gender identity: Male Cognitive needs: No Hearing needs: No Vision needs: Yes Review of Systems Const Denies chills and Denies fever(s) Card Denies chest pain, Denies dyspnea and Denies dyspnea on exertion Resp Denies cough, Denies dyspnea and Denies dyspnea on exertion GI Denies hematochezia and Denies change in bowel habits Denies hematuria and Denies difficulty urinating Musc Denies back pain and Denies limited range of motion Neuro Denies focal weakness and Denies convulsions Psych Denies depression and Denies mood swings Physical Exam Vital Signs: Last Vital Signs Pulse 67 02/17/24 15:37 BP 132/75 02/17/24 15:37 BMI result Body Mass Index 31.8 Const General: comfortable and no acute distress Orientation/consciousness: patient oriented x3 Neck Neck: Yes no lymphadenopathy Resp Auscultation: clear to auscultation bilaterally Cardio Rhythm: regular rhythm GI Palpation (GI): Soft to palpation, nontender and no guarding Neuro General: patient oriented x3 Assessment & Plan Assessment & Plan (1) Colon cancer: Code(s): C18.9 - Malignant neoplasm of colon, unspecified Category: Medical Plan: There was a polyp removed from the sigmoid colon which had an invasive adenocarcinoma, well-differentiated, T1 cancer. The margins were negative but suspicious for lymphovascular invasion. I had a long discussion with him about options. The main option at this time is to proceed with sigmoid resection because of the risk of recurrence in view of the lymphovascular invasion. I discussed with him the technique of this procedure. He says that he would like to avoid any surgery at this time considering that the polyp appeared to had been completely removed with negative margins. The ot her option therefore is to repeat the colonoscopy in about 6 months to see if there is any residual or recurrent lesion. He does understand that there is always the risk of recurrence without sigmoid resection. He says that he would rather take that risk other than proceed with the surgery at this time I am going to order for a CAT scan to check his liver as well for any metastatic disease. I will check his CEA levels. I will see him in the office again after his CAT scan. I am going to discuss the above with his endoscopist Dr. Lee. Orders: Orders Creatinine 02/17/24 C18.9 - Malignant neoplasm of colon, unspecified Carcinoembryonic Antigen 02/17/24 C18.9 - Malignant neoplasm of colon, unspecified CT abdomen pelvis w IV con 02/17/24 C18.9 - Malignant neoplasm of colon, unspecified Blood Urea Nitrogen 02/17/24 C18.9 - Malignant neoplasm of colon, unspecified Coding Level of Care Code New Pt Level 3 (41956) Diagnoses Colon cancer C18.9
== END 2024-02-17 16:07 | disposition home or self-care (01) ==
PROVIDERS: PCP Internal Medicine; Visit Provider Surgery
DX: C18.9 Malignant neoplasm of colon, unspecified (principal)
CPT/HCPCS: 99204

== ENCOUNTER → 2024-03-05 13:00 | Outpatient (BNV) | payer MEDICARE, SELFPAY | PROVIDERS: PCP Internal Medicine; Referring Provider Internal Medicine Gastroenterology; Visit Provider Internal Medicine | DX: C18.9 Malignant neoplasm of colon, unspecified (principal) | CPT/HCPCS: 99204 ==

== ENCOUNTER 2024-04-13 14:58 | Outpatient (REF) | payer MEDICARE, SELFPAY ==
--- NOTE | ~2024-04-13 | CT_ITS ---
EXAMINATION: CT ABDOMEN AND PELVIS WITH CONTRAST CLINICAL INFORMATION: Malignant neoplasm of colon, unspecified COMPARISON: CT 06/04/2010 TECHNIQUE: Multidetector volumetric images were obtained from the superior aspect of the liver through the pubic symphysis following administration 85 mL of Omnipaque 350 intravenous contrast. Sagittal and coronal reformatted images were obtained on the technologist's workstation. Oral contrast: No This CT examination was performed using dose optimization techniques as appropriate, variously including the following: *Automated exposure control *Adjustment of mA and/or kV according to patient size (this includes techniques or standardized protocols for targeted exams where dose is matched to indication/reason for exam; i.e. extremities or head) *Use of iterative reconstruction technique DLP: 398 mGy-cm FINDINGS: LUNG BASES: The visualized lung bases are unremarkable. LIVER, GALLBLADDER, AND BILIARY TREE: The liver is normal in overall size and attenuation. Within the left hepatic lobe there is a 0.6 cm hypoattenuating structure which is too small to definitively characterize, though may represent a cyst. On the prior CT 06/04/2010 this measured 3 to 4 mm. A similar 3 mm hypoattenuating structure is seen more cranially within left hepatic lobe adjacent to the left hepatic vein (image 115, series 6). The gallbladder is unremarkable. There is no intra or extrahepatic duct dilation. PANCREAS: Unremarkable. SPLEEN: Unremarkable. ADRENAL GLANDS: Unremarkable. KIDNEYS AND URETERS: The kidneys are normal in size, shape, and attenuation. There are few fluid attenuation cysts within the kidneys bilaterally which would not require routine radiographic follow-up. The largest on the right is a 1.2 cm cyst at the upper pole and the largest on the left is a 1.9 cm cyst at the midpole. No hydronephrosis, hydroureter, or calculi seen. No perinephric stranding. BLADDER: Unremarkable. GASTROINTESTINAL TRACT: The distal esophagus and stomach are unremarkable. Incidentally there is a small hiatus hernia containing peritoneal fat. The small and large bowel are not enlarged. There is colonic diverticulosis without inflammatory changes to suggest diverticulitis. There is a normal appendix. ABDOMINAL WALL: No significant hernia is appreciated. LYMPH NODES: Normal. VASCULAR: Unremarkable. PELVIC VISCERA: Prostate is enlarged and measures 5.3 cm transverse. Prostate seminal vesicles are otherwise unremarkable. OSSEOUS STRUCTURES: There is straightening of the lumbar lordosis which may be positional. There is disc space loss and endplate changes predominantly at L4-L5 and L5-S1. No acute or aggressive bony abnormalities are identified. CT/CT abdomen pelvis w IV con IMPRESSION: No acute process. There is colonic diverticulosis and mild degenerative changes of the thoracolumbar spine. The given clinical information notes, malignant neoplasm of colon, unspecified . While there is no evidence of metastatic disease within the abdomen, , correlation with most recent colonoscopy is recommended. Electronically signed by: Shukri Arthur MD 04/17/2024 12:28 PM EDT
[2024-04-13] MEDS: iohexoL 350 MG/ML 100 ML INFUS..BTL IV (16:38)
[2024-04-15 16:21] LABS: Creatinine POC 0.9 mg/dL (0.5-1.4); GFR POC > 60
== END 2024-04-13 14:59 | disposition home or self-care (01) ==
LOC: HO.CT 14:58
PROVIDERS: PCP Internal Medicine; Visit Provider Surgery
DX: C18.9 Malignant neoplasm of colon, unspecified (principal)
CPT/HCPCS: 74177; 82565; Q9967

== ENCOUNTER 2024-04-30 14:07 | Outpatient (AMB) | payer MEDICARE, SELFPAY ==
--- NOTE | 2024-04-30 14:30 | A.OFFVIS_ITS ---
Intake Visit Reasons: CT follow up appt Intake Note: This patient presents for Ct-Scan follow-up. Pt c/o; reports no new complaints since last visit. 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 I had sent him for a CT scan because of a recent diagnosis of an adenocarcinoma on a polyp which was on a stalk. Denies any other complaints at this time. He feels well overall. [facility] Medical History Colon cancer Frozen shoulder syndrome Skin tag Colon cancer screening Tinnitus Blood pressure elevated without history of HTN Impaired glucose tolerance Vitamin D deficiency Obesity (BMI 30-39.9) Psoriasis Hypercholesterolemia Surgical History Hx of colonoscopy Social History Household Members: Spouse Housing: House Alcohol intake: former Patient Tobacco Use Status: Former Tobacco user Tobacco use type: Cigarette Years Smoked: quit 1975 e-Cigarette/Vaping Use: Never Used Second Hand Smoke Exposure: No service: No Current occupational status: retired Gender identity: Male Cognitive needs: No Hearing needs: No Vision needs: Yes Review of Systems Const Denies chills and Denies fever(s) Card Denies chest pain, Denies dyspnea and Denies dyspnea on exertion Resp Denies cough, Denies dyspnea and Denies dyspnea on exertion GI Denies hematochezia and Denies change in bowel habits Denies hematuria and Denies difficulty urinating Musc Denies back pain and Denies limited range of motion Neuro Denies focal weakness and Denies convulsions Psych Denies depression and Denies mood swings Physical Exam Const General: comfortable and no acute distress Resp Effort & Inspection: normal respiratory effort Cardio Rate: regular rate GI Palpation (GI): Soft to palpation, not firm, nontender and no guarding Assessment & Plan Assessment & Plan (1) 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 The margins were negative and the polyp was on a long stalk. The patient did not want to proceed with resection because of the above factors. He wanted to opt for close monitoring His CT scan does not reveal any suggestion of any metastasis. I explained to him that he should have a follow-up flexible sigmoidoscopy up to area of 28 cm to re-examine this segment within 6 months from the time of his initial colonoscopy He says that he already has this scheduled with Dr. Lee. I will see him again in about 6 months to make sure that he being followed closely. He is comfortable with the plan. Coding Level of Care Code Est Pt Level 3 (07898) Diagnoses Colon cancer C18.9
== END 2024-04-30 14:55 | disposition home or self-care (01) ==
PROVIDERS: PCP Internal Medicine; Visit Provider Surgery
DX: C18.9 Malignant neoplasm of colon, unspecified (principal)
CPT/HCPCS: 99213

== ENCOUNTER → 2024-04-30 14:07 | Outpatient (BNVA) | payer MEDICARE, SELFPAY | PROVIDERS: PCP Internal Medicine; Visit Provider Surgery | DX: C18.9 Malignant neoplasm of colon, unspecified (principal) | CPT/HCPCS: 99212 ==

== ENCOUNTER 2024-05-22 12:47 | Outpatient (REF) | payer MEDICARE, SELFPAY ==
[2024-05-22 13:19] LABS: MANUAL DIFF FLAG NO
[2024-05-22 14:28] LABS: Basophils Absolute Auto 0.1 X10*3/uL (0.0-0.2); Basophils Percent Auto 0.9 % (0-2); Eosinophils Absolute Auto 0.1 X10*3/uL (0.0-0.4); Eosinophils Percent Auto 1.6 % (0-4); Hematocrit 43.7 % (42.0-52.0); Hemoglobin 13.9 g/dl (14.0-18.0); Imm Gran Abs Auto 0.01 X10*3/uL (0.00-0.03); Imm Gran Pct Auto 0.2 % (0.0-0.4); Lymphocytes Absolute Auto 1.6 X10*3/uL (1.2-4.9); Lymphocytes Percent Auto 29.5 % (20-40); Mean Corpuscular HGB Conc 31.8 g/dl (31.0-36.0); Mean Platelet Volume 10.3 fL (9.4-12.4); Monocytes Absolute Auto 0.3 X10*3/uL (0.1-1.2); Monocytes Percent Auto 6.1 % (2-11); Neutrophils Absolute Auto 3.4 x10*3/uL (2.0-8.3); Neutrophils Percent Auto 61.7 % (45-73); Platelet Count 272 X10*3/uL (160-400); Red Cell Distribution Width 13.3 % (11.0-16.0); White Blood Count 5.6 X10*3/uL (4.8-10.8)
[2024-05-22 14:34] LABS: Estimated Average Glucose 111 mg/dL; Hemoglobin A1C 136.3537 umol/L; Hemoglobin A1c % 5.5 % (<6.0); Total Hemoglobin (HGBA1C) 3688.9287 umol/L
[2024-05-22 15:51] LABS: Alanine Aminotransferase 22 U/L (0-40); Albumin Level 4.3 g/dL (3.5-5.0); Alkaline Phosphatase 60 U/L (39-117); Anion Gap 12 (12-20); Aspartate Amino Transferase 28 U/L (5-37); Bilirubin Total 0.4 mg/dL (0.0-1.0); Blood Urea Nitrogen 19 mg/dL (9-16); Calcium 9.6 mg/dL (8.4-10.2); Carbon Dioxide 30 mmol/L (22-29); Chloride 106 mmol/L (96-108); Cholesterol 188 mg/dL (<200); Estimated Glomerular Filt Rate > 60; Glucose Random 95 mg/dL (60-115); HDL Cholesterol 47 mg/dL (>40); LDL Cholesterol Calculated 126 mg/dL (<100); Potassium 5.4 mmol/L (3.3-5.1); Sodium 143 mmol/L (135-145); Total Protein 7.1 g/dL (6.5-8.0); Triglycerides 75 mg/dL (<150)
[2024-05-22 16:00] LABS: Folate 13.6 ng/mL (> or = 4.0); Prostate Specific Antigen Scr 3.19 ng/mL (<0.05-4.0); Vitamin B12 625 pg/mL (200-900)
[2024-05-22 16:01] LABS: Thyroid Stimulating Hormone 1.71 uIU/mL (0.32-4.0)
== END 2024-05-22 12:48 | disposition home or self-care (01) ==
LOC: HO.LAB 12:47
PROVIDERS: PCP Internal Medicine; Visit Provider Internal Medicine
DX: E78.00 Pure hypercholesterolemia, unspecified (principal); R73.02 Impaired glucose tolerance (oral); Z12.5 Encounter for screening for malignant neoplasm of prostate
CPT/HCPCS: 36415; 80053; 80061; 82607; 82746; 83036; 84153; 84439; 84443; 85025

== ENCOUNTER 2024-05-28 12:43 | Outpatient (AMB) | payer MEDICARE, SELFPAY ==
[2024-05-28 12:46] VITALS: BP 144/82; PULSE 79; O2SAT 92; BMI 30.9
--- NOTE | 2024-05-28 12:46 | MHC.PC.OV ---
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 Accompanied by: Self / Same As Patient Allergies lisinopril Allergy (Intermediate, Verified 05/28/24 12:46) cough Tobacco use date assessed: 07/22/23 Fall risk assessment: No Falls in past year Last assessed Fall Risk: 05/28/24 Dental Screening Dental Screen Date: 01/21/24 HPI Follow Up HPI Details 68-year-old obese male with history of impaired glucose tolerance hypercholesterolemia psoriasis hypertension patient has a history of sigmoid adenocarcinoma in February 2023(patient declined resection) last seen in January having a positive colorectal Cologuard test patient was referred to Gastroenterology and had a colonoscopy in January 2024. Review of the notes follows up with Dermatology seen in May 01 for psoriasis on methotrexate 3 tablets equals to 7.5 mg once a week folic acid clobetasol calcipotriene. Blood count CBC LFT requested. TB testing patient has seen the surgeon on account of the sigmoid adeno carcinoma 03/03/2023 declined resection advised follow-up flex sig. Abdominal CT 04/17/2024No acute process. There is colonic diverticulosis and mild degenerative changes of the thoracolumbar spine. The given clinical information notes, malignant neoplasm of colon, unspecified . While there is no evidence of metastatic disease within the abdomen, , correlation with most recent colonoscopy is recommended. Patient also follows up with Hematology-Oncology explained to patient that can not give any recommendations about adjuvant therapy without definitive surgery and staging and patient was advised consider surgery. ON LICENSE OF [facility] Medical History Colon cancer Frozen shoulder syndrome Skin tag Colon cancer screening Tinnitus Blood pressure elevated without history of HTN Impaired glucose tolerance Vitamin D deficiency Obesity (BMI 30-39.9) Psoriasis Hypercholesterolemia Surgical History Hx of colonoscopy Social History Household Members: Spouse Housing: House Alcohol intake: former Patient Tobacco Use Status: Former Tobacco user Tobacco use type: Cigarette Years Smoked: quit 1975 e-Cigarette/Vaping Use: Never Used Second Hand Smoke Exposure: No service: No Current occupational status: retired Gender identity: Male Cognitive needs: No Hearing needs: No Vision needs: Yes Questionnaire Thrive Questionnaire Date Thrive assessed: 01/21/24 TAMRA-7 AMB Questionnaire TAMRA-7 Date TAMRA - 7 assessed: 07/22/23 Source: Developed by Drs. Izaiah Peterson, Rahel Webster, Oli Canales and colleagues, with an educational akua from [employer]. Physical exam (Primary Care) Vital Signs: Last Vital Signs Pulse 79 05/28/24 12:46 BP 144/82 H 05/28/24 12:46 Pulse Ox 92 05/28/24 12:46 Oxygen Delivery Method Room Air 05/28/24 12:46 BMI result Body Mass Index 30.9 Tobacco/Smoking Status: Tobacco use Status Tobacco use date assessed 07/22/23 05/28/24 12:52 Patient Tobacco Use Status Former Tobacco user 05/28/24 12:52 Tobacco use type Cigarette 05/28/24 12:52 e-Cigarette/Vaping Use Never Used 05/28/24 12:52 Thrive Assessment: Date of Thrive Assessment Date Thrive assessed 01/21/24 05/28/24 12:52 Const General: alert; No acute distress Eyes Conjunctivae: conjunctivae normal Resp Auscultation: clear to auscultation bilaterally Cardio Rate: regular rate Rhythm: regular rhythm GI Inspection: Yes normal to inspection Extrem General: Yes normal to inspection and No edema Coding Level of Care Code Est Pt Level 4 (88235) Diagnoses Malignant neoplasm of sigmoid colon C18.7 Colon location: sigmoid Primary hypertension I10 Hypertension type: primary hypertension Impaired glucose tolerance R73.02 Obesity (BMI 30-39.9) E66.9 Hypercholesterolemia E78.00 Psoriasis L40.9 Assessment & Plan Assessment & Plan (1) 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 Patient has been recommended to have surgery done. (2) Hypertension: Code(s): I10 - Essential (primary) hypertension Category: Medical Qualifiers: Hypertension type: primary hypertension Qualified Code(s): I10 - Essential (primary) hypertension Plan: Continue with blood pressure medication. Decrease salt intake and exercise presently on losartan 100 mg once a day (3) Impaired glucose tolerance: Code(s): R73.02 - Impaired glucose tolerance (oral) Category: Medical Plan: Decrease the amount of carbohydrate intake, pasta, bread, rice and potatoes are all sugar and that is aside from all the sweet stuff, remember that fruits are good but they are Sweet also. (4) Obesity (BMI 30-39.9): Code(s): E66.9 - Obesity, unspecified Category: Medical Plan: Diet and exercise (5) Hypercholesterolemia: Code(s): E78.00 - Pure hypercholesterolemia, unspecified Category: Medical Plan: Avoid fried foods, chicken skin, eggs, butter margarine, pastries and meat. Be it pork or beef they have a lot of cholesterol LDL goal of less than 130 and triglyceride of less than 150. On pravastatin 40 mg once a day (6) Psoriasis: Code(s): L40.9 - Psoriasis, unspecified Category: Medical Plan: Continue to follow-up with dermatology and on methotrexate and tacrolimus.
== END 2024-05-28 13:24 | disposition home or self-care (01) ==
PROVIDERS: PCP Internal Medicine; Visit Provider Internal Medicine
DX: I10 Essential (primary) hypertension (principal); C18.7 Malignant neoplasm of sigmoid colon; Z68.30 Body mass index [BMI] 30.0-30.9, adult; E66.9 Obesity, unspecified; R73.02 Impaired glucose tolerance (oral); E78.00 Pure hypercholesterolemia, unspecified; L40.9 Psoriasis, unspecified

== ENCOUNTER → 2024-05-28 12:43 | Outpatient (BNVA) | payer MEDICARE, SELFPAY | PROVIDERS: PCP Internal Medicine; Visit Provider Internal Medicine | DX: C18.7 Malignant neoplasm of sigmoid colon (principal); R73.02 Impaired glucose tolerance (oral); I10 Essential (primary) hypertension; E78.00 Pure hypercholesterolemia, unspecified; E66.9 Obesity, unspecified | CPT/HCPCS: 99212 ==

== ENCOUNTER 2024-07-24 12:38 | Outpatient (AMB) | payer MEDICARE, SELFPAY ==
[2024-07-24 12:45] VITALS: BP 138/82; PULSE 69; O2SAT 96; BMI 30.8
--- NOTE | 2024-07-24 12:45 | A.OFFPC_ITS ---
Vital Signs 07/24/24 12:45 Height 5 ft 5 in Weight 185 lb 4 oz BMI 30.8 BP 138/82 Blood Pressure Location Lt brachial Position Sitting Pulse 69 Pulse Source Pulse Oximeter Pulse Oximetry (%) 96 Oxygen Delivery Method Room Air Intake Visit Reasons: Annual Exam Auto Body Estimator Required: No Accompanied by: Self / Same As Patient Allergies lisinopril Allergy (Intermediate, Verified 07/24/24 12:45) cough Medication List - Last Reconciled 07/24/24 by Brooklynn Chavarria MD folic acid 1 mg PO DAILY losartan 100 mg PO DAILY methotrexate sodium 7.5 mg PO QWEEK multivitamin 1 tab PO DAILY pravastatin 40 mg PO DAILY Tobacco use date assessed: 07/24/24 Fall risk assessment: No Falls in past year Last assessed Fall Risk: 07/24/24 Dental Screening Dental Screen Date: 07/24/24 Did you have a dental visit in the last 12 months?: No Did you have a dental problem in the last 6 months where you did not have access to dental care?: No Was dental information given to patient?: No HPI Annual Exam HPI Details colon test this month The patient is a 68-year-old male presenting with chronic disease management and follow-up. He has a history of hypertension managed with losartan 100 mg daily and a chronic condition of psoriasis for which topical treatments are reportedly not in use due to cost concerns. The patient expressed no recent issues with hypertension, and his blood pressure was noted as favorable at the visit. He also takes methotrexate 7.5 mg weekly for his conditions. He reports a longstanding issue with tinnitus and underwent prior assessment for hearing loss, with hearing aids being recommended but not pursued due to expense. The patient denies experiencing dizziness, chest pain, or shortness of breath. He also mentions good control of bowel movements and no nocturia aside from occasionally arising once at night. An additional concern includes elevated potassium levels, though the patient is uncertain about contributing considerations aside from dietary intake. His cataracts are symptomatic with visual disturbances at night, and cataract surgery is scheduled for August. - Tetanus and shingles vaccinations are up to date. - Reports a previous pneumonia vaccinati on and opts not to receive annual influenza vaccination. - Current plans for colonoscopy with Dr. Lee in the near future. - Cataract surgery scheduled, with surgi ben consult completed. - Denies alcohol and tobacco use. - Remains active but describes a lack of motivation. - Cardiovascular: Denies chest pain or s hortness of breath. - Gastrointestinal: Denies nausea, vomit ing, or changes in bowel habits other than stable nocturia. - Neurological: Reports long-term tinnit us. Denies dizziness or fainting. - Musculoskeletal: Denies any new lumps, bumps, or musculoskeletal pain. - Genitourinary: Denies issues with urin ation aside from stable nocturia patterns. - Labs: Slightly elevated potassium leve ls, otherwise complete blood count and metabolic panel within normal ranges. - Cholesterol and liver function tests: Within normal limits. - Prostate-Specific Antigen (PSA), B12, folic acid, thyroid levels: Within normal limits. [facility] Medical History Colon cancer Frozen shoulder syndrome Skin tag Colon cancer screening Tinnitus Blood pressure elevated without history of HTN Impaired glucose tolerance Vitamin D deficiency Obesity (BMI 30-39.9) Psoriasis Hypercholesterolemia Surgical History Hx of colonoscopy Social History Household Members: Spouse Housing: House Alcohol intake: former Patient Tobacco Use Status: Former Tobacco user Tobacco use type: Cigarette Years Smoked: quit 1976 e-Cigarette/Vaping Use: Never Used Second Hand Smoke Exposure: No service: No Current occupational status: retired Gender identity: Male Cognitive needs: No Hearing needs: No Vision needs: Yes Questionnaire PHQ-9 Over the last 2 weeks, how often have you been bothered by any of the following problems? 1. Little interest or pleasure in doing things: not at all 2. Feeling down, depressed, or hopeless: not at all 3. Trouble falling or staying asleep, or sleeping too much: not at all 4. Feeling tired or having little energy: not at all 5. Poor appetite or overeating: not at all 6. Feeling bad about yourself - or that you are a failure or have let yourself or your family down: not at all 7. Trouble concentrating on things, such as reading the newspaper or watching television: not at all 8. Moving or speaking so slowly that other people could have noticed. Or the opposite - being so fidgety or restless that you have been moving around a lot more than usual: not at all 9. Thoughts that you would be better off or of hurting yourself in some way: not at all Total score: 0 Source: Developed by Drs. Izaiah Peterson, Rahel Webster, Oli Canales and colleagues, with an educational akua from [employer]. Thrive Questionnaire Date Thrive assessed: 07/24/24 I am a: Patient What is your living situation today?: I have a steady place to live Within the past 12 months, did the food you bought not last and you didn't have the money to get more?: Never true Within the past 12 months, did you worry whether your food would run out before you got money to buy more?: Never true Do you have trouble paying for medicines?: No Do you have trouble getting transportation to medical appointments?: No Do you have trouble paying your heating and electricity bill?: I choose not to answer this question Do you have trouble taking care of your child, family member or friend?: No Do you have trouble with day-to-day activities such as bathing, preparing meals, shopping, managing finances, etc.?: No Are you currently unemployed and looking for a job?: No Are you interested in more education?: No Please select the resources that you would like help with: None Currently or been in a relationship where the following occur: No concerns reported THRIVE Score: 0 AUDIT C Alcohol Use Questionnaire (AUDIT-C) 1. How often do you have a drink containing alcohol?: Never 3. How often do you have six or more drinks on one occasion?: Never Total Score: 0 TAMRA-7 AMB Questionnaire TAMRA-7 Date TAMRA - 7 assessed: 07/24/24 Feeling nervous, anxious, or on edge: 0 = Not at all Not being able to stop or control worryin = Not at all Worrying too much about different things: 0 = Not at all Trouble relaxin = Not at all Being so restless that it is hard to sit still: 0 = Not at all Becoming easily annoyed or irritable: 0 = Not at all Feeling afraid as if something awful might happen: 0 = Not at all Total TAMRA-7 score (0-4 normal; 5-9 mild; 10-14 moderate; 15-21 severe): 0 Source: Developed by Drs. Izaiah Peterson, Rahel Webster, Oli Canales and colleagues, with an educational akua from [employer]. Review of Systems Const Denies poor appetite and Denies weakness Eyes Denies no additional complaints ENT Reports Normal hearing present, Denies dizziness, Denies nasal congestion, Denies tinnitus and Denies sore throat Card Denies chest pain, Denies syncope, Denies rapid heart rate and Denies dyspnea Resp Denies cough and Denies dyspnea GI Denies change in stool character, Reports constipation, Denies diarrhea, Denies nausea and Denies vomiting Denies dysuria and Denies urinary frequency Neuro Reports Normal hearing present, Denies confusion, Denies dizziness, Denies syncope and Denies weakness Psych Denies confusion Physical exam (Primary Care) Vital Signs: Last Vital Signs Pulse 69 07/24/24 12:45 BP 138/82 07/24/24 12:45 Pulse Ox 96 07/24/24 12:45 Oxygen Delivery Method Room Air 07/24/24 12:45 BMI result Body Mass Index 30.8 Tobacco/Smoking Status: Tobacco use Status Tobacco use date assessed 07/24/24 07/24/24 12:50 Patient Tobacco Use Status Former Tobacco user 07/24/24 12:50 Tobacco use type Cigarette 07/24/24 12:50 e-Cigarette/Vaping Use Never Used 07/24/24 12:50 PHQ-9: PHQ-9 Score PHQ-9: Total score 0 07/24/24 13:05 Thrive Assessment: Date of Thrive Assessment Date Thrive assessed 07/24/24 07/24/24 12:50 Currently or been in a relationship where the following occur: No concerns reported Const General: No confusion Orientation/consciousness: No confusion HENMT Head: Yes normocephalic Ears: external ears normal and TM's normal bilaterally Face and sinus: Yes normal facial exam Mouth: moist mucous membranes Throat: Yes tonsils normal Eyes Conjunctivae: conjunctivae normal Pupils: Equal, round and reactive pupils present and Pupil accommodation reflex normal Direct Ophthalmoscopy: normal light reflex Neck Neck: No lymphadenopathy Thyroid: Thyroid normal Chest Chest palpation & inspection: normal inspection of the chest Resp Effort & Inspection: normal respiratory effort and no audible wheezes Auscultation: clear to auscultation bilaterally, no crackles, no wheezes and lung sounds not diminished Cardio Rate: regular rate Rhythm: regular rhythm Peripheral pulses: radial pulses present and dorsalis pedis present GI Other: colon test 07/2024 Palpation (GI): no masses Auscultation: normal bowel sounds and normoactive bowel sounds Rectal Exam - Male: Yes deferred Other: declined Skin General skin exam: no rashes or lesions noted Rashes: no rashes Neuro General: No confusion Cranial nerves: Yes Equal, round and reactive pupils present and Yes Normal hearing present Cognition (Neuro): normal cognition Gait exam (Neuro): Normal gait present Motor exam (neuro): 5/5 motor strength present throughout Deep tendon reflexes (DTR's): Right brachioradialis reflex intensity grade: 2+, Left brachioradialis reflex intensity grade: 2+, Right patellar reflex intensity grade: 2+ and Left patellar reflex intensity grade: 2+ Extrem General: No edema Coding Level of Care Code Est Pt Prev Care >65y(67492) Diagnoses Annual physical exam Z00.00 Malignant neoplasm of sigmoid colon C18.7 Colon location: sigmoid Obesity (BMI 30-39.9) E66.9 Impaired glucose tolerance R73.02 Hypercholesterolemia E78.00 Primary hypertension I10 Hypertension type: primary hypertension Psoriasis L40.9 Assessment & Plan Assessment & Plan (1) Annual physical exam: Code(s): Z00.00 - Encounter for general adult medical examination without abnormal findings Category: Medical (2) 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 Code(s): C18.9 - Malignant neoplasm of colon, unspecified Category: Medical Qualifiers: Colon location: sigmoid Qualified Code(s): C18.7 - Malignant neoplasm of sigmoid colon (3) Obesity (BMI 30-39.9): Code(s): E66.9 - Obesity, unspecified Category: Medical (4) Impaired glucose tolerance: Code(s): R73.02 - Impaired glucose tolerance (oral) Category: Medical (5) Hypercholesterolemia: Code(s): E78.00 - Pure hypercholesterolemia, unspecified Category: Medical (6) Hypertension: Code(s): I10 - Essential (primary) hypertension Category: Medical Qualifiers: Hypertension type: primary hypertension Qualified Code(s): I10 - Essential (primary) hypertension (7) Psoriasis: Code(s): L40.9 - Psoriasis, unspecified Category: Medical Plan - Continue current management of hypertension with losartan. - Discuss potential cost-effective treatments for psoriasis. - Review potential dietary adjustments or changes to manage elevated potassium levels, and consider follow-up lab testing. - Hearing loss evaluation to be reconsidered, although current focus remains on cost implications of hearing aids. - Cataract surgery scheduled, monitor for progression of symptoms. - Scheduled colonoscopy to ensure colorectal health. I discussed with Mr. Putnam that his hypertension appears well managed on current regimen and addressed his concerns regarding psoriasis treatment. We reviewed the need for cataract surgery and discussed his upcoming operation, emphasizing its benefits for improving vision. I advised him on dietary modifications to address elevated potassium, and we reviewed implications of his labs. I reiterated the importance of continued medication adherence and ongoing monitoring of his symptoms. I explained the available treatment options for his tinnitus, although current focus remains on affordability considerations for hearing aids. He was also advised about preventive measures regarding current viral seasons, particularly RSV and norovirus, and the best practices for avoiding infections. - Continue current medications as prescribed. - Consider dietary adjustments to manage potassium levels. - Follow through with scheduled cataract surgery. - Maintain regular follow-up appointments for chronic disease management. - Stay updated on vaccinations, considering risks of current viral seasons. - Report any significant changes in symptoms or new concerns immediately. Orders: Orders Ferritin Today C18.7 - Malignant neoplasm of sigmoid colon Free T4 (Free Thyroxine) Today C18.7 - Malignant neoplasm of sigmoid colon Vitamin B12 and Folate Today C18.7 - Malignant neoplasm of sigmoid colon Complete Blood Count Auto Diff Today C18.7 - Malignant neoplasm of sigmoid colon Comprehensive Met. Panel Today C18.7 - Malignant neoplasm of sigmoid colon IRON PROFILE Today C18.7 - Malignant neoplasm of sigmoid colon Reticulocyte Count Today C18.7 - Malignant neoplasm of sigmoid colon Thyroid Stimulating Hormone Today C18.7 - Malignant neoplasm of sigmoid colon
== END 2024-07-24 13:21 | disposition home or self-care (01) ==
PROVIDERS: PCP Internal Medicine; Visit Provider Internal Medicine
DX: Z00.00 Encounter for general adult medical examination without abnormal findings (principal); C18.7 Malignant neoplasm of sigmoid colon; E66.9 Obesity, unspecified; Z68.30 Body mass index [BMI] 30.0-30.9, adult; R73.02 Impaired glucose tolerance (oral); E78.00 Pure hypercholesterolemia, unspecified; I10 Essential (primary) hypertension; L40.9 Psoriasis, unspecified

== ENCOUNTER → 2024-07-24 12:38 | Outpatient (BNVA) | payer MEDICARE, SELFPAY | PROVIDERS: PCP Internal Medicine; Visit Provider Internal Medicine | DX: Z00.00 Encounter for general adult medical examination without abnormal findings (principal); C18.7 Malignant neoplasm of sigmoid colon; I10 Essential (primary) hypertension; E66.9 Obesity, unspecified; R73.02 Impaired glucose tolerance (oral); E78.00 Pure hypercholesterolemia, unspecified; L40.9 Psoriasis, unspecified; Z79.899 Other long term (current) drug therapy | CPT/HCPCS: 96127; 99397 ==

== ENCOUNTER 2024-07-27 13:24 | Outpatient (AMB) | payer MEDICARE, SELFPAY ==
--- NOTE | 2024-07-27 13:28 | A.OFFPC_ITS ---
Vital Signs 07/27/24 13:31 Height 5 ft 5 in Weight 186 lb 2 oz BMI 31.0 BP 124/68 Blood Pressure Location Lt brachial Position Sitting Pulse 87 Pulse Source Pulse Oximeter Pulse Oximetry (%) 94 Oxygen Delivery Method Room Air Intake Visit Reasons: Dr. Matthews cataract lt 08/17 & rt 08/24 Intake Note: Patient is here for a Pre-op for Cataract surgery scheduled with Dr Matthews on left 08/17/24 and right 08/24/24. Safety Specialist Required: No Marine Meteorologist: Not Required per policy Accompanied by: Self / Same As Patient Allergies lisinopril Allergy (Intermediate, Verified 07/27/24 13:43) cough Medication List - Last Reconciled 07/27/24 by Lula Mckinley PA-C bisacodyl (Dulcolax (bisacodyl)) 20 mg (4 x 5 mg) PO ONCE 1 day folic acid 1 mg PO DAILY losartan 100 mg PO DAILY methotrexate sodium 7.5 mg PO QWEEK multivitamin 1 tab PO DAILY peg 3350-electrolytes [id number] -5.86 gram 240 mL PO Q10M pravastatin 40 mg PO DAILY Tobacco use date assessed: 07/27/24 Fall risk assessment: No Falls in past year Last assessed Fall Risk: 07/27/24 Dental Screening Dental Screen Date: 07/24/[address] Matthews cataract lt 08/17 & rt 08/24 HPI Details 68-year-old male with past medical histo ry of hypertension, hypercholesterolemia, impaired glucose tolerance last seen by Dr. Chavarria 07/24/2024 coming in for preoperative exam.? Patient is scheduled to have cataract surgery with Dr. Matthews left eye 08/17/2024 and right eye 08/24/2024. Hypertension: Controlled, presently on Losartan 100mg. Impaired glucose tolerance: Last A1c within normal limits. Not on medical management. PFSH Medical History Colon cancer Frozen shoulder syndrome Skin tag Colon cancer screening Tinnitus Blood pressure elevated without history of HTN Impaired glucose tolerance Vitamin D deficiency Obesity (BMI 30-39.9) Psoriasis Hypercholesterolemia Surgical History Hx of colonoscopy Social History Household Members: Spouse Housing: House Alcohol intake: former Patient Tobacco Use Status: Former Tobacco user Tobacco use type: Cigarette Years Smoked: quit 1976 e-Cigarette/Vaping Use: Never Used Second Hand Smoke Exposure: No service: No Current occupational status: retired Gender identity: Male Cognitive needs: No Hearing needs: No Vision needs: Yes Questionnaire Thrive Questionnaire Date Thrive assessed: 07/24/24 I am a: Patient What is your living situation today?: I have a steady place to live Within the past 12 months, did the food you bought not last and you didn't have the money to get more?: Never true Within the past 12 months, did you worry whether your food would run out before you got money to buy more?: Never true Do you have trouble paying for medicines?: No Do you have trouble getting transportation to medical appointments?: No Do you have trouble paying your heating and electricity bill?: I choose not to answer this question Do you have trouble taking care of your child, family member or friend?: No Do you have trouble with day-to-day activities such as bathing, preparing meals, shopping, managing finances, etc.?: No Are you currently unemployed and looking for a job?: No Are you interested in more education?: No Please select the resources that you would like help with: None Currently or been in a relationship where the following occur: No concerns reported THRIVE Score: 0 TAMRA-7 AMB Questionnaire TAMRA-7 Date TAMRA - 7 assessed: 07/24/24 Source: Developed by Drs. Izaiah Peterson, Rahel Webster, Oli Canales and colleagues, with an educational akua from [employer]. Review of Systems Const Denies body aches, Denies chills, Denies fever(s), Denies headache(s) and Denies poor appetite Eyes Reports no additional complaints ENT Denies dysphagia, Denies dizziness, Denies headache(s) and Denies odynophagia Card Denies chest pain, Denies syncope, Denies edema, Denies irregular heart rhythm, Denies lightheadedness and Denies dyspnea Resp Denies cough and Denies dyspnea GI Denies abdominal pain, Denies constipation, Denies dysphagia, Denies diarrhea, Denies nausea, Denies odynophagia and Denies vomiting Reports no additional complaints Musc Reports no additional complaints and Denies abnormal gait Skin/Breast Reports system reviewed and no additional complaints, except as documented Neuro Denies abnormal gait, Denies dizziness, Denies syncope and Denies headache(s) Psych Reports no additional complaints Physical exam (Primary Care) Vital Signs: Last Vital Signs Pulse 87 07/27/24 13:31 BP 124/68 07/27/24 13:31 Pulse Ox 94 07/27/24 13:31 Oxygen Delivery Method Room Air 07/27/24 13:31 BMI result Body Mass Index 31.0 Tobacco/Smoking Status: Tobacco use Status Tobacco use date assessed 07/27/24 07/27/24 13:35 Patient Tobacco Use Status Former Tobacco user 07/27/24 13:35 Tobacco use type Cigarette 07/27/24 13:35 e-Cigarette/Vaping Use Never Used 07/27/24 13:35 Thrive Assessment: Date of Thrive Assessment Date Thrive assessed 07/24/24 07/27/24 13:35 Currently or been in a relationship where the following occur: No concerns reported Const General: cooperative, healthy appearing, comfortable and no acute distress Orientation/consciousness: patient oriented x3 HENMT Head: Yes normocephalic Ears: hearing grossly normal bilaterally General nose exam: Normal external nose present Eyes General: appearance normal, both eyes and all related structures Conjunctivae: conjunctivae normal Neck Neck: Yes full ROM and Yes no lymphadenopathy Resp Effort & Inspection: normal respiratory effort Auscultation: clear to auscultation bilaterally, no crackles, no rales, no rhonchi and no wheezes Cardio Rate: regular rate Rhythm: regular rhythm Skin General skin exam: no rashes or lesions noted Neuro General: patient oriented x3 Gait exam (Neuro): Normal gait present Extrem General: Yes normal to inspection, Yes full ROM and No edema Psych Affect: normal affect Attitude: cooperative Insight: Good insight present (Psych) Judgement: Good judgement present (Psych) Coding Level of Care Code Est Pt Level 3 (27385) Diagnoses Pre-op examination Z01.818 Assessment & Plan Assessment & Plan (1) Pre-op examination: Code(s): Z01.818 - Encounter for other preprocedural examination Category: Medical Plan: Regarding preop clearance, the patient is at low-moderate risk for proposed surgery due to his age however his comorbidities are well managed at this time. Reviewed with the patient that no surgery is completely free of risk and that this examination is to assist the surgeon in reviewing informed consent. Discussed with patient all medications may be taken up until the day before surgery on the morning of the procedure losartan needs to be taken all other medications may be held until after the procedure is completed. No further workup needed at this time and may proceed with the contemplated procedure. Thank you very much for letting me participate in the care of this patient. Plan This note was constructed using voice recognition software. While every effort has been made to ensure accuracy and technical system analyst, still areas may have been included sometimes these areas may affect the content or meeting of the given sy mptoms. Total time spent caring for the patient today was 30 minutes. This includes time spent before the visit reviewing the chart, time spent during the visit, and time spent after the visit and documentation.
[2024-07-27 13:31] VITALS: BP 124/68; PULSE 87; O2SAT 94; BMI 31.0
== END 2024-07-27 13:56 | disposition home or self-care (01) ==
PROVIDERS: PCP Internal Medicine
DX: Z01.818 Encounter for other preprocedural examination (principal)

== ENCOUNTER → 2024-07-27 13:24 | Outpatient (BNVA) | payer MEDICARE, SELFPAY | PROVIDERS: PCP Internal Medicine | DX: Z01.818 Encounter for other preprocedural examination (principal); H26.9 Unspecified cataract; I10 Essential (primary) hypertension; E78.00 Pure hypercholesterolemia, unspecified | CPT/HCPCS: 99212 ==

== ENCOUNTER 2024-07-29 08:43 | Day surgery (SDC) | payer MEDICARE, SELFPAY ==
[2024-07-27 14:38] VITALS: BMI 31.8
--- NOTE | 2024-07-28 11:54 | P.CONAN_ITS ---
Documented by User: Theresa Duke NP 07/28/24 11:54 HPI - Anesthesia Eval Consult details Narrative: 68yo M for Colonoscopy PMFSH Active Problems Active Problems: All Active Problems Pre-op examination (Acute) Positive colorectal cancer screening using Cologuard test (Acute) Annual physical exam (Acute) Primary osteoarthritis, right shoulder (Acute) Shoulder tendinitis (Acute) Hypertension (Acute) Colonoscopy refused (Acute) Colon cancer (Acute) Tinnitus (Acute) Impaired glucose tolerance (Acute) Obesity (BMI 30-39.9) (Acute) Psoriasis (Acute) Hypercholesterolemia (Acute) Past Medical History Medical History Colon cancer Frozen shoulder syndrome Skin tag Tinnitus Blood pressure elevated without history of HTN Impaired glucose tolerance Vitamin D deficiency Obesity (BMI 30-39.9) Psoriasis Hypercholesterolemia Family History Family history of problems with anesthesia: No Surgical History Surgical History Hx of colonoscopy History of Problems with Anesthesia: Yes Social History Social History Household Members: Spouse Housing: House Alcohol intake: former Patient Tobacco Use Status: Former Tobacco user Tobacco use type: Cigarette Years Smoked: quit 1975 e-Cigarette/Vaping Use: Never Used Second Hand Smoke Exposure: No Advance Directives: No Advance Directives Information Provided: Yes service: No Current occupational status: retired Gender identity: Male Cognitive needs: No Hearing needs: No Vision needs: Yes Meds Allergies Allergy/AdvReac Type Severity Reaction Status Date / Time lisinopril Allergy Intermediate cough Verified 07/27/24 13:43 Home Medications ?Medication ?Instructions ?Recorded ?Confirmed ?Last Taken ?Type folic acid 1 mg tablet 1 mg PO DAILY 12/27/20 07/27/24 Unknown History methotrexate sodium 2.5 mg tablet 7.5 mg PO QWEEK 12/27/20 07/27/24 01/31/24 History multivitamin 1 tab PO DAILY 07/22/23 07/27/24 Unknown History Exam Height,Weight and Vital Signs: Height 5 ft 4 in Weight 83.915 kg Assessment and Plan Assessment Anesthesia Assessment: Chart Reviewed Final Anesthetic Review Family History of Problems with Anesthesia: No History of Problems with Anesthesia: Yes Documented by User: Rahel Mahan MD 07/29/24 10:04 [facility] Past Medical History Medical History Colon cancer Frozen shoulder syndrome Skin tag Tinnitus Blood pressure elevated without history of HTN Impaired glucose tolerance Vitamin D deficiency Obesity (BMI 30-39.9) Psoriasis Hypercholesterolemia Surgical History Surgical History Hx of colonoscopy Social History Social History Household Members: Spouse Housing: House Alcohol intake: former Patient Tobacco Use Status: Former Tobacco user Tobacco use type: Cigarette Years Smoked: quit 1976 e-Cigarette/Vaping Use: Never Used Second Hand Smoke Exposure: No Advance Directives: No Advance Directives Information Provided: Yes service: No Current occupational status: retired Gender identity: Male Cognitive needs: No Hearing needs: No Vision needs: Yes Meds Allergies Allergy/AdvReac Type Severity Reaction Status Date / Time lisinopril Allergy Intermediate cough Verified 07/27/24 13:43 Home Medications ?Medication ?Instructions ?Recorded ?Confirmed ?Last Taken ?Type folic acid 1 mg tablet 1 mg PO DAILY 12/27/20 07/27/24 Unknown History methotrexate sodium 2.5 mg tablet 7.5 mg PO QWEEK 12/27/20 07/27/24 01/31/24 History multivitamin 1 tab PO DAILY 07/22/23 07/27/24 Unknown History Exam Airway Mallampati Class: II TM Dist: <=3cm Neck ROM: Limited Heart: rrr Lungs: cta Assessment and Plan Assessment Anesthesia Assessment: Anesthesia Plan Discussed Final Anesthetic Review NPO: Yes ASA Class: III Final Preanesthetic Review: No Changes in Pt Med Stat, Meds/Allgs Chart Reviewed, Consent Obtained/Reviewed and Anes Risks/Benef Reviewed Patient Risk: Intermediate Procedure Risk: Low Anesthetic Plan Anesthetic Plan: MAC: Disposition: Standard PACU
[2024-07-29 10:11] VITALS: BMI 30.7
--- NOTE | 2024-07-29 10:22 | MHC.SHP ---
Pre-Procedural Eval Section A - 24 Hr Update-Section A only Date of Service: 07/29/24 Section B - Complete if H&P > 30 days Chief Complaint: Malignant neoplasm of colon, unspecified Relevant Family History (Specify if Yes): No Relevant Social History: None Present Medications: see Short Stay Collaborative assessment Medical History: Significant History (Colon cancer Frozen shoulder syndrome Skin tag Tinnitus Blood pressure elevated without history of HTN Impaired glucose tolerance Vitamin D deficiency Obesity (BMI 30-39.9) Psoriasis Hypercholesterolemia) History of Previous Operations: Relevant previous surgery/procedure and date(s) (Hx of colonoscopy) Allergies: Allergies Allergy/AdvReac Type Severity Reaction Status Date / Time lisinopril Allergy Intermediate cough Verified 07/27/24 13:43 Review of Systems Sugical H&P ROS: Negative: Constitution, Cardiovascular, Respiratory, Neurological, Psychiatric, Hem-Onc, Allergic/Immunologic, Gastrointestinal, Genitourinary, Musculoskeletal, Integumentary, Endocrine and Eyes/Ears/Nose/Throat Exam Surgical H&P Exam: Normal: HEENT, Normal: Heart, Normal: Lungs, Normal: Extremities, Normal: Abdomen, Normal: Skin and Normal: Neurological Plan Diagnosis/Plan: Unchanged I have reviewed the history and physical and performed a pertinent physical examination on my patient. No changes have occurred unless specified. Time Spent With Patient Time: Total time managing care of this patient today ____ minutes.
--- NOTE | 2024-07-29 10:33 | ECG_ITS ---
Test Reason : preop Blood Pressure : */* mmHG Vent. Rate : 80 BPM Atrial Rate : 80 BPM P-R Int : 142 ms QRS Dur : 96 ms QT Int : 380 ms P-R-T Axes : 39 96 32 degrees QTcB Int : 438 ms Sinus rhythm with Premature atrial complexes Rightward axis Borderline ECG When compared with ECG of 04-Jun-2010 19:19, No significant changes seen Referred By: Rahel Mahan Electronically Signed By: Jorge Luis Norton
[2024-07-29] MEDS: Lactated Ringers 1,000 ML 100 ML IVCONT (10:45)
[2024-07-29 10:50] LABS: Anion Gap 13 (12-20); Carbon Dioxide 28 mmol/L (22-29); Chloride 105 mmol/L (96-108); Potassium 4.3 mmol/L (3.3-5.1); Sodium 142 mmol/L (135-145)
--- NOTE | 2024-07-29 11:20 | HO.OPN-COLON ---
Colonoscopy Operative Note Operative Note Date of Service: 07/29/24 Narrative: Operative Information Procedure Description: Colonoscopy Indication: hx of malignant polyp Anesthesia: MAC COLONOSCOPY Instrument: Olympus variable stiffness pediatric scope 190L Colonoscopy Monitoring: Vital signs and clinical assessment, continuous EKG monitoring, Pulse oximetry, Carbon Dioxide monitoring and blood pressure monitoring were done throughout the procedure. Colon withdrawal time was 7 minutes. Procedure: The patient was placed in the left lateral decubitis position and pre-procedure medications were administered. After a digital rectal examination of the ano-rectum, the video colonoscope was inserted into the rectum and advanced through the colon to the cecum/TI. The colonoscope was slowly withdrawn in a retrograde panoramic fashion and the colon mucosa was carefully examined including a retroflexed view of the rectum. Findings and interventions are described below. Procedure Difficulty: easy Findings: Terminal Ileum-normal Cecum:normal Ascending Colon: normal Transverse Colon -normal Descending Colon:normal Sigmoid Colon: at 28 cm semi peduculated polyp removed with hot snare and 2 clips applied over defect, biopsies also taken from adjacent tissue, mild diverticulosis Rectum: Retroflexion with small internal hemorrhoids seen, grade I, at 18 cm semi pedunculated polyp 10 mm removed with cold snare Anorectum - normal Intervention: cold snare, cold forceps Colon preparation: [place] Bowel Preparation Scale Right colon; 2 Transverse colon: 2 Left colon; 2 (0 = Unprepared colon segment with mucosa not seen due to solid stool that cannot be cleared. 1 = Portion of mucosa of the colon segment seen, but other areas of the colon segment not well seen due to staining, residual stool and/or opaque liquid. 2 = Minor amount of residual staining, small fragments of stool and/or opaque liquid, but mucosa of colon segment seen well. 3 = Entire mucosa of colon segment seen well with no residual staining, small fragments of stool or opaque liquid) Impression and Post Procedure Diagnosis: diverticulosis colon polyps internal hemorrhoids Plan: High fiber diet leaflet Avoid straining at stool, epsom salts and sitz bath, anusol supps or cream Repeat Colonoscopy in 6 months or earlier if clinically indicated Above findings were reviewed with the patient and relevant handouts were provided if indicated.
[2024-07-29 11:24] VITALS: BP 117/61; PULSE 90; RESP 18; TEMP 36.4; O2SAT 96
[2024-07-29 11:38] VITALS: BP 113/68; PULSE 81; RESP 16; TEMP 36.6; O2SAT 96
== END 2024-07-29 12:14 | disposition home or self-care (01) ==
PROVIDERS: Nurse Practitioner; PCP Internal Medicine; Visit Provider Internal Medicine Gastroenterology
PROC: 0DJD8ZZ Inspection of Lower Intestinal Tract, Via Natural or Artificial Opening Endoscopic (ICD-10-PCS; CPT 45378; principal; 2024-07-29 10:50)
DX: C18.7 Malignant neoplasm of sigmoid colon (principal); Z86.0101 Personal history of adenomatous and serrated colon polyps; K63.5 Polyp of colon; K62.1 Rectal polyp; K57.30 Diverticulosis of large intestine without perforation or abscess without bleeding; K64.0 First degree hemorrhoids; I10 Essential (primary) hypertension; E78.00 Pure hypercholesterolemia, unspecified; R73.02 Impaired glucose tolerance (oral); E55.9 Vitamin D deficiency, unspecified; L40.9 Psoriasis, unspecified; E66.9 Obesity, unspecified; Z68.31 Body mass index [BMI] 31.0-31.9, adult; Z79.899 Other long term (current) drug therapy; Z88.8 Allergy status to other drugs, medicaments and biological substances; Z87.891 Personal history of nicotine dependence
CPT/HCPCS: 45385; 45380; 36415; 80051; 88305; 93005; J2003; J2704

== ENCOUNTER → 2024-07-29 08:43 | Outpatient (BNV) | payer MEDICARE, SELFPAY | PROVIDERS: PCP Internal Medicine; Visit Provider Internal Medicine Gastroenterology | DX: Z12.11 Encounter for screening for malignant neoplasm of colon (principal); Z85.038 Personal history of other malignant neoplasm of large intestine; K62.1 Rectal polyp; K63.5 Polyp of colon | CPT/HCPCS: 45380; 45385 ==

== ENCOUNTER → 2024-07-29 10:33 | Outpatient (BNV) | payer MEDICARE, SELFPAY | PROVIDERS: PCP Internal Medicine; Visit Provider Internal Medicine Cardiovascular Disease | DX: I49.1 Atrial premature depolarization (principal) | CPT/HCPCS: 93010 ==

== ENCOUNTER 2024-08-17 05:59 | Day surgery (SDC) | payer MEDICARE, SELFPAY ==
[2024-08-10 13:22] VITALS: BMI 31.0
[2024-08-17] MEDS: Tetracaine HCl/PF 0.5% Oph Sol 4 ML DROPS 1 DROP EYE-LEFT (06:23)
[2024-08-17 06:25] VITALS: BP 135/68; PULSE 62; RESP 15; TEMP 36.3; O2SAT 96
[2024-08-17] MEDS: Cyclopentolate 1 % Ophth Sol 2 ML DRPBTL 1 DROP EYE-LEFT ×3 (06:25→06:35)
[2024-08-17] MEDS: Tropicamide 1 % Ophth Sol 3 ML BTL 1 DROP EYE-LEFT ×3 (06:27→06:36)
[2024-08-17] MEDS: Ketorolac Tromethamine 0.5% Op 10 ML DROPS 1 DROP EYE-LEFT ×3 (06:28→06:37)
[2024-08-17] MEDS: Phenylephrine HCL 2.5% Oph SoL 2 ML BOTTLE 1 DROP EYE-LEFT ×3 (06:29→06:38)
[2024-08-17] MEDS: Lactated Ringers 500 ML 50 ML IV (06:43)
--- NOTE | 2024-08-17 07:17 | HO.ANESPROP2 ---
HPI - Anesthesia Eval Consult details Narrative: 69 yo male patient for Left cataract extraction, IOL insertion PMFSH Active Problems Active Problems: All Active Problems (Updated 08/17/24 @ 06:40 by Mari Higgins RN) Pre-op examination (Acute) Positive colorectal cancer screening using Cologuard test (Acute) Annual physical exam (Acute) Primary osteoarthritis, right shoulder (Acute) Shoulder tendinitis (Acute) Hypertension (Acute) Colonoscopy refused (Acute) Colon cancer (Acute) Tinnitus (Acute) Impaired glucose tolerance (Acute) Obesity (BMI 30-39.9) (Acute) Psoriasis (Acute) Hypercholesterolemia (Acute) Past Medical History Medical History HTN (hypertension) Cataracts, bilateral Colon cancer Frozen shoulder syndrome Skin tag Tinnitus Blood pressure elevated without history of HTN Impaired glucose tolerance Vitamin D deficiency Obesity (BMI 30-39.9) Psoriasis Hypercholesterolemia Family History Family history of problems with anesthesia: No Surgical History Surgical History Hx of colonoscopy (07/29/24) History of Problems with Anesthesia: No Social History Social History Household Members: Spouse Housing: House Alcohol intake: former Patient Tobacco Use Status: Former Tobacco user Tobacco use type: Cigarette Years Smoked: quit 1976 e-Cigarette/Vaping Use: Never Used Second Hand Smoke Exposure: No Advance Directives: No Advance Directives Information Provided: Yes service: No Current occupational status: retired Gender identity: Male Cognitive needs: No Hearing needs: No Vision needs: Yes Meds Allergies Allergy/AdvReac Type Severity Reaction Status Date / Time lisinopril Allergy Intermediate cough Verified 08/17/24 06:09 Active Medications: Current Medications Lactated Ringer's (Lr) 500 mls @ 50 mls/hr IV .Q10H REYES Stop: 08/17/24 16:44 Last Admin: 08/17/24 06:43 Dose: 50 mls/hr Povidone Iodine (Povidone Iodine 5 % Ophth Soln 30 Ml Bottle) 1 appl EYE-LEFT PREOP PRN PRN Reason: Pre-Op Surgical Implant Prophy Home Medications ?Medication ?Instructions ?Recorded ?Confirmed ?Last Taken ?Type folic acid 1 mg tablet 1 mg PO DAILY 12/27/20 07/27/24 Unknown History methotrexate sodium 2.5 mg tablet 7.5 mg PO QWEEK 12/27/20 07/27/24 01/31/24 History multivitamin 1 tab PO DAILY 07/22/23 07/27/24 Unknown History Exam Height,Weight and Vital Signs: Height 5 ft 5 in Weight 84.425 kg Last Vital Signs Temp 97.4 F 08/17/24 06:25 Pulse 62 08/17/24 06:25 Resp 15 08/17/24 06:25 BP 135/68 08/17/24 06:25 Pulse Ox 96 08/17/24 06:25 O2 Del Method Room Air 08/17/24 06:25 Airway Mallampati Class: II TM Dist: >3cm Neck ROM: Full Loose/Missing/Broken Teeth: Yes (Missing tooth bottom right. Denies broken or loose teeth) Heart: RRR Lungs: CTAB Assessment and Plan Assessment Anesthesia Assessment: Anesthesia Plan Discussed and Chart Reviewed Final Anesthetic Review Family History of Problems with Anesthesia: No History of Problems with Anesthesia: No NPO: Yes ASA Class: II Final Preanesthetic Review: No Changes in Pt Med Stat, Meds/Allgs Chart Reviewed, Consent Obtained/Reviewed and Anes Risks/Benef Reviewed Patient Risk: Intermediate Procedure Risk: Low Assessment/Block/Sedation in SS: Assess/Block/Sedation-SS Anesthetic Plan Anesthetic Plan: MAC: Disposition: Standard PACU
--- NOTE | 2024-08-17 07:32 | MHC.SHP ---
Pre-Procedural Eval Section A - 24 Hr Update-Section A only Date of Service: 08/17/24 The patient is an INPATIENT: No Changes since office visit: No Cold of Flu in the past 2 weeks, No New Medical Problems, No Changes in Medication and No Patient answered all questions The patient has been examined within 24 hours of the surgical procedure. The History & Physical has been completed within 30 days and I have reviewed it.: Yes Section B - Complete if H&P > 30 days Chief Complaint: Age-related nuclear cataract, left eye Allergies: Allergies Allergy/AdvReac Type Severity Reaction Status Date / Time lisinopril Allergy Intermediate cough Verified 08/17/24 06:09 Plan Diagnosis/Plan: Unchanged I have reviewed the history and physical and performed a pertinent physical examination on my patient. No changes have occurred unless specified. Time Spent With Patient Time: Total time managing care of this patient today ____ minutes.
--- NOTE | 2024-08-17 07:32 | HO.PNOPHT ---
Ophthalmology Procedure Procedure Date of Service: 08/17/24 Ophthalmology Viscoelastic: Healon Duet Dual Pack Pro Ophthalmology Lenses: IOL Acrysof MP - MA60AC (21) Procedure Notes: PREOPERATIVE DIAGNOSIS: Decreased visual acuity left eye secondary to cataract POSTOPERATIVE DIAGNOSIS: Same PROCEDURE: Left cataract extraction with intraocular lens insertion SURGEON: Glen Matthews M.D. ANESTHESIA: Topical/MAC ESTIMATED BLOOD LOSS: None COMPLICATIONS: None After obtaining informed consent, the patient was brought to the operation room suite and placed in the supine position. After adequate sedation per anesthesia, topical drops of Tetracaine were given to the left eye. The eye was then prepped and draped in the usual sterile fashion. The operating room microscope was then positioned over the operative eye and a lid speculum placed. A paracentesis was created. Viscoelastic was then instilled into the anterior chamber. A three plane incision was then created temporally, utilizing a 2.85 mm keratome. Capsulotomy forceps were then utilized to create a circular tear capsulotomy. Hydrodissection and hydrodelineation were carried out until adequate mobilization of the nucleus occurred. Phacoemulsification was then utilized to remove the dense central nucleus followed by removal of the cortical material utilizing the automated aspiration irrigation unit. Viscoat elastic was instilled into the posterior capsular bag followed by placement of a posterior chamber intraocular lens without difficulty. The residual Viscoat elastic was then removed utilizing the automated IA machine. The wound was check and found to be watertight. The patient tolerated the procedure well and the lid speculum was removed. Intracameral injection of Vigamox 0.1 mL followed by a subtenon injection of Kenalog-40 0.2 mL were administered. The patient will be seen in the a.m.
[2024-08-17 08:01] VITALS: BP 108/56; PULSE 69; RESP 16; TEMP 36.8; O2SAT 98
== END 2024-08-17 08:44 | disposition home or self-care (01) ==
LOC: HO.SSS 06:00
PROVIDERS: PCP Internal Medicine; Visit Provider Ophthalmology
PROC: (CPT 66985; principal; 2024-08-17 07:30)
DX: H25.12 Age-related nuclear cataract, left eye (principal); H52.4 Presbyopia; Z83.511 Family history of glaucoma; Q14.1 Congenital malformation of retina; H11.153 Pinguecula, bilateral; H18.413 Arcus senilis, bilateral; H43.393 Other vitreous opacities, bilateral; I10 Essential (primary) hypertension; E78.00 Pure hypercholesterolemia, unspecified; R73.02 Impaired glucose tolerance (oral); L40.9 Psoriasis, unspecified; Z85.038 Personal history of other malignant neoplasm of large intestine; Z79.899 Other long term (current) drug therapy; Z88.8 Allergy status to other drugs, medicaments and biological substances; Z87.891 Personal history of nicotine dependence
CPT/HCPCS: 66984; J2250; J3010; J3301; V2630

== ENCOUNTER 2024-08-24 07:26 | Day surgery (SDC) | payer MEDICARE, SELFPAY ==
[2024-08-10 13:23] VITALS: BMI 31.0
--- NOTE | 2024-08-20 13:05 | HO.ANESPROP2 ---
Documented by User: Theresa Duke NP 08/20/24 13:05 HPI - Anesthesia Eval Consult details Narrative: 69yo M for Right Cataract Extraction IOL Insertion Left eye 08/17/24: Fent 50, Midaz 1 PMFSH Active Problems Active Problems: All Active Problems Pre-op examination (Acute) Positive colorectal cancer screening using Cologuard test (Acute) Annual physical exam (Acute) Primary osteoarthritis, right shoulder (Acute) Shoulder tendinitis (Acute) Hypertension (Acute) Colonoscopy refused (Acute) Colon cancer (Acute) Tinnitus (Acute) Impaired glucose tolerance (Acute) Obesity (BMI 30-39.9) (Acute) Psoriasis (Acute) Hypercholesterolemia (Acute) Past Medical History Medical History HTN (hypertension) Cataracts, bilateral Colon cancer Frozen shoulder syndrome Skin tag Tinnitus Blood pressure elevated without history of HTN Impaired glucose tolerance Vitamin D deficiency Obesity (BMI 30-39.9) Psoriasis Hypercholesterolemia Family History Family history of problems with anesthesia: No Surgical History Surgical History H/O left cataract extraction (08/17/24) Hx of colonoscopy (07/29/24) History of Problems with Anesthesia: No Social History Social History Household Members: Spouse Housing: House Are you a primary care coordination manager to a significant other at home: No Do you presently have visiting nurse or other home services: No Alcohol intake: former Patient Tobacco Use Status: Former Tobacco user Tobacco use type: Cigarette Years Smoked: quit 1975 e-Cigarette/Vaping Use: Never Used Second Hand Smoke Exposure: No Use of substances other than those prescribed or required for medical reasons: No Have you been hit, kicked, punched, or otherwise hurt by someone within the past year? If so, by whom?: No Are you DNR?: No Advance Directives: No Advance Directives Information Provided: Yes Recently lost weight without trying: No Nutrition Risks: No Nutritional Risk Poor oral hygiene: No service: No Current occupational status: retired Gender identity: Male Cognitive needs: No Hearing needs: No Vision needs: Yes Meds Allergies Allergy/AdvReac Type Severity Reaction Status Date / Time lisinopril Allergy Intermediate cough Verified 08/24/24 08:07 Home Medications ?Medication ?Instructions ?Recorded ?Confirmed ?Last Taken ?Type folic acid 1 mg tablet 1 mg PO DAILY 12/27/20 07/27/24 Unknown History methotrexate sodium 2.5 mg tablet 7.5 mg PO QWEEK 12/27/20 07/27/24 01/31/24 History multivitamin 1 tab PO DAILY 07/22/23 07/27/24 Unknown History Exam Height,Weight and Vital Signs: Height 5 ft 5 in Weight 84.425 kg Assessment and Plan Assessment Anesthesia Assessment: Chart Reviewed Final Anesthetic Review Family History of Problems with Anesthesia: No History of Problems with Anesthesia: No Documented by User: Pat Frederick MD 08/24/24 09:43 PMFSH Past Medical History Medical History HTN (hypertension) Cataracts, bilateral Colon cancer Frozen shoulder syndrome Skin tag Tinnitus Blood pressure elevated without history of HTN Impaired glucose tolerance Vitamin D deficiency Obesity (BMI 30-39.9) Psoriasis Hypercholesterolemia Surgical History Surgical History H/O left cataract extraction (08/17/24) Hx of colonoscopy (07/29/24) Social History Social History Household Members: Spouse Housing: House Are you a primary care coordination manager to a significant other at home: No Do you presently have visiting nurse or other home services: No Alcohol intake: former Patient Tobacco Use Status: Former Tobacco user Tobacco use type: Cigarette Years Smoked: quit 1976 e-Cigarette/Vaping Use: Never Used Second Hand Smoke Exposure: No Use of substances other than those prescribed or required for medical reasons: No Have you been hit, kicked, punched, or otherwise hurt by someone within the past year? If so, by whom?: No Are you DNR?: No Advance Directives: No Advance Directives Information Provided: Yes Recently lost weight without trying: No Nutrition Risks: No Nutritional Risk Poor oral hygiene: No service: No Current occupational status: retired Gender identity: Male Cognitive needs: No Hearing needs: No Vision needs: Yes Meds Allergies Allergy/AdvReac Type Severity Reaction Status Date / Time lisinopril Allergy Intermediate cough Verified 08/24/24 08:07 Home Medications ?Medication ?Instructions ?Recorded ?Confirmed ?Last Taken ?Type folic acid 1 mg tablet 1 mg PO DAILY 12/27/20 07/27/24 Unknown History methotrexate sodium 2.5 mg tablet 7.5 mg PO QWEEK 12/27/20 07/27/24 01/31/24 History multivitamin 1 tab PO DAILY 07/22/23 07/27/24 Unknown History Exam Airway Mallampati Class: II TM Dist: >3cm Neck ROM: Full Loose/Missing/Broken Teeth: No Heart: RRR Lungs: CTA Assessment and Plan Final Anesthetic Review NPO: Yes ASA Class: II Final Preanesthetic Review: Meds/Allgs Chart Reviewed, Consent Obtained/Reviewed and Anes Risks/Benef Reviewed Patient Risk: Low Procedure Risk: Low Anesthetic Plan Anesthetic Plan: MAC: Disposition: Standard PACU
[2024-08-24 08:26] VITALS: BP 143/72; PULSE 67; RESP 14; TEMP 37; O2SAT 96; BMI 30.4
[2024-08-24] MEDS: Cyclopentolate 1 % Ophth Sol 2 ML DRPBTL 1 DROP EYE-RIGHT ×3 (08:30→08:39)
[2024-08-24] MEDS: Ketorolac Tromethamine 0.5% Op 5 ML DROPS 1 DROP EYE-RIGHT ×3 (08:31→08:41)
[2024-08-24] MEDS: Phenylephrine HCL 2.5% Oph SoL 2 ML BOTTLE 1 DROP EYE-RIGHT ×3 (08:32→08:42)
[2024-08-24] MEDS: Tropicamide 1 % Ophth Sol 3 ML BTL 1 DROP EYE-RIGHT ×3 (08:33→08:40)
[2024-08-24] MEDS: Lactated Ringers 500 ML 50 ML IV (08:33)
[2024-08-24] MEDS: Tetracaine HCl/PF 0.5% Oph Sol 4 ML DROPS 1 DROP EYE-RIGHT (08:33)
--- NOTE | 2024-08-24 09:05 | MHC.SHP ---
Pre-Procedural Eval Section A - 24 Hr Update-Section A only Date of Service: 08/24/24 The patient is an INPATIENT: No The patient has been examined within 24 hours of the surgical procedure. The History & Physical has been completed within 30 days and I have reviewed it.: Yes Section B - Complete if H&P > 30 days Chief Complaint: Age-related nuclear cataract, right eye Allergies: Allergies Allergy/AdvReac Type Severity Reaction Status Date / Time lisinopril Allergy Intermediate cough Verified 08/24/24 08:07 Plan Diagnosis/Plan: Unchanged I have reviewed the history and physical and performed a pertinent physical examination on my patient. No changes have occurred unless specified. Time Spent With Patient Time: Total time managing care of this patient today ____ minutes.
--- NOTE | 2024-08-24 09:06 | P.PCNO_ITS ---
Ophthalmology Procedure Procedure Date of Service: 08/24/24 Ophthalmology Viscoelastic: Healon Duet Dual Pack Pro Ophthalmology Lenses: IOL Acrysof MP - MA60AC (20.5) Procedure Notes: PREOPERATIVE DIAGNOSIS: Decreased visual acuity right eye secondary to cataract POSTOPERATIVE DIAGNOSIS: Same PROCEDURE: Right cataract extraction with intraocular lens insertion SURGEON: Glen Matthews M.D. ANESTHESIA: Topical/MAC ESTIMATED BLOOD LOSS: None COMPLICATIONS: None After obtaining informed consent, the patient was brought to the operating room suite and placed in the supine position. After adequate sedation per anesthesia, topical drops of Tetracaine were given to the right eye. The eye was then prepped and draped in the usual sterile fashion. The operating room microscope was then positioned over the operative eye and a lid speculum placed. A paracentesis was created. Viscoelastic was then instilled into the anterior chamber. A three plane incision was then created temporally, utilizing a 2.85 mm keratome. Capsulotomy forceps were then utilized to create a circular tear capsulotomy. Hydrodissection and hydrodelineation were carried out until adequate mobilization of the nucleus occurred. Phacoemulsification was then utilized to remove the dense central nu cleus followed by removal of the cortical material utilizing the automated aspiration irrigation unit. Viscoelastic was instilled into the posterior capsular bag followed by placement of a posterior chamber intraocular lens without difficulty. The residual Viscoelastic was then removed utilizing the automated IA machine. The wound was checked and found to be watertight. The patient tolerated the procedure well and the lid speculum was removed. Intracameral injection of Vigamox 0.1 mL followed by a subtenon injection of Kenalog-40 0.2 mL were administered. The patient will be seen in the a.m.
[2024-08-24 09:28] VITALS: BP 111/64; PULSE 71; RESP 16; TEMP 36.6; O2SAT 97
== END 2024-08-24 09:36 | disposition home or self-care (01) ==
PROVIDERS: PCP Internal Medicine; Visit Provider Ophthalmology
PROC: (CPT 66985; principal; 2024-08-24 09:30)
DX: H25.11 Age-related nuclear cataract, right eye (principal); Z83.511 Family history of glaucoma; H52.4 Presbyopia; Q14.1 Congenital malformation of retina; H11.153 Pinguecula, bilateral; H18.413 Arcus senilis, bilateral; H43.393 Other vitreous opacities, bilateral; I10 Essential (primary) hypertension; R73.02 Impaired glucose tolerance (oral); L40.9 Psoriasis, unspecified; E78.00 Pure hypercholesterolemia, unspecified; E55.9 Vitamin D deficiency, unspecified; Z85.038 Personal history of other malignant neoplasm of large intestine; Z79.631 Long term (current) use of antimetabolite agent; Z79.899 Other long term (current) drug therapy; Z88.8 Allergy status to other drugs, medicaments and biological substances; Z87.891 Personal history of nicotine dependence
CPT/HCPCS: 66984; J2250; J3301; V2630

== ENCOUNTER 2024-10-07 14:43 | Outpatient (AMB) | payer MEDICARE, SELFPAY ==
--- NOTE | 2024-10-07 14:53 | A.OFFPC_ITS ---
Vital Signs 10/07/24 14:54 Height 5 ft 5 in Weight 181 lb 6 oz BMI 30.2 BP 134/66 Blood Pressure Location Lt brachial Position Sitting Pulse 68 Pulse Source Pulse Oximeter Temp 97.1 F Temp Source Temporal Artery Scan Pulse Oximetry (%) 98 Oxygen Delivery Method Room Air Intake Visit Reasons: Pain in Right Leg & Hip Intake Note: Patient is here to follow up on Pain in right lower back and hip radiates down the leg. 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 Mason Liner: Not Required per policy Accompanied by: Self / Same As Patient Allergies lisinopril Allergy (Intermediate, Verified 10/07/24 15:13) cough Medication List - Last Reconciled 10/07/24 by Lula Mckinley PA-C bisacodyl (Dulcolax (bisacodyl)) 20 mg (4 x 5 mg) PO ONCE 1 day folic acid 1 mg PO DAILY losartan 100 mg PO DAILY methotrexate sodium 7.5 mg PO QWEEK multivitamin 1 tab PO DAILY peg 3350-electrolytes 236-22.74-6.74 -5.86 gram 240 mL PO Q10M pravastatin 40 mg PO DAILY sodium,potassium,mag sulfates 17.5-3.13-1.6 gram (Suprep Bowel Prep Kit) DILUTE; drink 1/2 at 6-8 pm and half at 11 PM- 1AM Tobacco use date assessed: 10/07/24 Fall risk assessment: No Falls in past year Last assessed Fall Risk: 10/07/24 Dental Screening Dental Screen Date: 07/24/24 HPI Pain in Right Leg & Hip HPI Details The patient is a 69-year-old male with past medical history of hypertension, hypercholesterolemia, obesity, impaired glucose tolerance presenting with hip pain. He reports the hip pain began approximately two weeks ago without any falls or specific incidents. The pain radiated from the lower back to the hip and extends towards the leg. Initial relief was sought through [id number] pain relievers and ice application, although nighttime positions exacerbate the pain. There was a previous brief episode of similar pain two months prior. The patient experiences a burning sensation occasionally without numbness or tingling. His nocturnal pain is aggravated by certain positions and alleviated by strategic positioning of pillows to achieve comfort. He has a history of right shoulder pain diagnosed as a frozen shoulder, possibly due to arthritis. [facility] Medical History HTN (hypertension) Cataracts, bilateral Colon cancer Frozen shoulder syndrome Skin tag Tinnitus Blood pressure elevated without history of HTN Impaired glucose tolerance Vitamin D deficiency Obesity (BMI 30-39.9) Psoriasis Hypercholesterolemia Surgical History H/O left cataract extraction (08/17/24) Hx of colonoscopy (07/29/24) Social History Household Members: Spouse Housing: House Are you a primary primary care nurse to a significant other at home: No Do you presently have visiting nurse or other home services: No Alcohol intake: former Patient Tobacco Use Status: Former Tobacco user Tobacco use type: Cigarette Years Smoked: quit 1976 e-Cigarette/Vaping Use: Never Used Second Hand Smoke Exposure: Yes service: No Current occupational status: retired Gender identity: Male Cognitive needs: No Hearing needs: No Vision needs: Yes Questionnaire Thrive Questionnaire Date Thrive assessed: 07/24/24 I am a: Patient What is your living situation today?: I have a steady place to live Within the past 12 months, did the food you bought not last and you didn't have the money to get more?: Never true Within the past 12 months, did you worry whether your food would run out before you got money to buy more?: Never true Do you have trouble paying for medicines?: No Do you have trouble getting transportation to medical appointments?: No Do you have trouble paying your heating and electricity bill?: I choose not to answer this question Do you have trouble taking care of your child, family member or friend?: No Do you have trouble with day-to-day activities such as bathing, preparing meals, shopping, managing finances, etc.?: No Are you currently unemployed and looking for a job?: No Are you interested in more education?: No Please select the resources that you would like help with: None Currently or been in a relationship where the following occur: No concerns reported THRIVE Score: 0 TAMRA-7 AMB Questionnaire TAMRA-7 Date TAMRA - 7 assessed: 07/24/24 Source: Developed by Drs. Izaiah Peterson, Rahel Webster, Oli Canales and colleagues, with an educational akua from [employer]. Review of Systems Const Denies fever(s) Eyes Reports no additional complaints ENT Reports no additional complaints Card Denies chest pain and Denies dyspnea Resp Denies dyspnea Musc Details: Right Hip pain while lying flat occasionally throughout the day. Right shoulder pain Skin/Breast Reports system reviewed and no additional complaints, except as documented Psych Reports no additional complaints Physical exam (Primary Care) Vital Signs: Last Vital Signs Temp 97.1 F 10/07/24 14:54 Pulse 68 10/07/24 14:54 BP 134/66 10/07/24 14:54 Pulse Ox 98 10/07/24 14:54 Oxygen Delivery Method Room Air 10/07/24 14:54 BMI result Body Mass Index 30.2 Tobacco/Smoking Status: Tobacco use Status Tobacco use date assessed 10/07/24 10/07/24 15:00 Patient Tobacco Use Status Former Tobacco user 10/07/24 15:00 Tobacco use type Cigarette 10/07/24 15:00 e-Cigarette/Vaping Use Never Used 10/07/24 15:00 Thrive Assessment: Date of Thrive Assessment Date Thrive assessed 07/24/24 10/07/24 15:00 Currently or been in a relationship where the following occur: No concerns reported Const General: cooperative, healthy appearing, comfortable and no acute distress Orientation/consciousness: patient oriented x3 HENMT Head: Yes normocephalic Ears: hearing grossly normal bilaterally General nose exam: Normal external nose present Eyes General: appearance normal, both eyes and all related structures Conjunctivae: conjunctivae normal Neck Neck: Yes full ROM and Yes no lymphadenopathy Resp Effort & Inspection: normal respiratory effort Auscultation: clear to auscultation bilaterally, no crackles, no rales, no rhonchi and no wheezes Cardio Rate: regular rate Rhythm: regular rhythm Back/Spine/Pelvis Other: No pain to palpation over entirety of hip and no pain with active range of motion of right hip Pelvis: no pain with anterior-posterior compression, no pain with lateral compression and no buttock tenderness Skin General skin exam: no rashes or lesions noted Neuro General: patient oriented x3 Gait exam (Neuro): Normal gait present Extrem General: Yes normal to inspection, Yes full ROM and No edema Psych Affect: normal affect Attitude: cooperative Insight: Good insight present (Psych) Judgement: Good judgement present (Psych) Coding Level of Care Code Est Pt Level 3 (44118) Diagnoses Primary hypertension I10 Hypertension type: primary hypertension Impaired glucose tolerance R73.02 Obesity (BMI 30-39.9) E66.9 Primary osteoarthritis, right shoulder M19.011 Right hip pain M25.551 Assessment & Plan Assessment & Plan (1) Hypertension: Code(s): I10 - Essential (primary) hypertension Category: Medical Qualifiers: Hypertension type: primary hypertension Qualified Code(s): I10 - Essential (primary) hypertension Plan: Continue on current blood pressure medication. Avoid salt intake and encourage healthy diet and regular exercise. (2) Impaired glucose tolerance: Code(s): R73.02 - Impaired glucose tolerance (oral) Category: Medical Plan: Decrease the amount of carbohydrates such as pasta, bread, rice, and potatoes and limit the amount of sweets. Although fruits are generally healthy they should be eaten in moderation as they are still high in sugar. (3) Obesity (BMI 30-39.9): Code(s): E66.9 - Obesity, unspecified Category: Medical Plan: Healthy diet and regular exercise is encouraged. (4) Primary osteoarthritis, right shoulder: Code(s): M19.011 - Primary osteoarthritis, right shoulder Category: Medical Plan: Referral placed to physical therapy at patient request (5) Right hip pain: Code(s): M25.551 - Pain in right hip Category: Medical Plan: The treatment plan for the patient's hip pain includes initiating muscle relaxers for nighttime use to alleviate resting discomfort and improve sleep. Physical therapy for both the hip and shoulder is prescribed to address potential muscular issues and structural alignment. While immediate x-rays are not planned, they remain a contingency should symptoms persist or escalate. The patient is instructed to use increased doses of Tylenol during waking hours, as options for further medication are restricted by the current methotrexate regimen. Continued monitoring and reassessment will occur at a follow-up in January unless the situation necessitates a more urgent re-evaluation. Plan This note was constructed using voice recognition software. While every effort has been made to ensure accuracy and banquet food server, still areas may have been included sometimes these areas may affect the content or meeting of the given symptoms. Total time spent caring for the patient today was 20 minutes. This includes time spent before the visit reviewing the chart, time spent during the visit, and time spent after the visit and documentation. Patient was informed and verbally consented to the use of an ambient scribe for clinic note documentation during this visit. Orders: Orders PT Evaluation and Treatment Today M19.011 - Primary osteoarthritis, right shoulder, M25.551 - Pain in right hip Medications: New cyclobenzaprine 5 mg PO BEDTIME 14 tabs 0RF acetaminophen ER (Tylenol 8 Hour) 650 mg PO Q12H PRN 20 tabs 0RF pain
[2024-10-07 14:54] VITALS: BP 134/66; PULSE 68; TEMP 36.2; O2SAT 98; BMI 30.2
== END 2024-10-07 15:30 | disposition home or self-care (01) ==
LOC: HO.HMCH 14:43
PROVIDERS: PCP Internal Medicine
DX: I10 Essential (primary) hypertension (principal); R73.02 Impaired glucose tolerance (oral); E66.9 Obesity, unspecified; Z68.30 Body mass index [BMI] 30.0-30.9, adult; M19.011 Primary osteoarthritis, right shoulder; M25.551 Pain in right hip

== ENCOUNTER → 2024-10-07 14:43 | Outpatient (BNVA) | payer MEDICARE, SELFPAY | PROVIDERS: PCP Internal Medicine | DX: I10 Essential (primary) hypertension (principal); R73.02 Impaired glucose tolerance (oral); E66.9 Obesity, unspecified; M19.011 Primary osteoarthritis, right shoulder; M25.551 Pain in right hip | CPT/HCPCS: 99212 ==

== ENCOUNTER 2024-12-24 11:53 | Outpatient (REF) | payer MEDICARE, SELFPAY ==
[2024-12-24 12:12] LABS: MANUAL DIFF FLAG NO
[2024-12-24 12:44] LABS: Basophils Absolute Auto 0.1 X10*3/uL (0.0-0.2); Eosinophils Absolute Auto 0.1 X10*3/uL (0.0-0.4); Eosinophils Percent Auto 2.3 % (0-4); Hematocrit 41.7 % (42.0-52.0); Hemoglobin 13.1 g/dl (14.0-18.0); Imm Gran Abs Auto 0.01 X10*3/uL (0.00-0.03); Imm Gran Pct Auto 0.2 % (0.0-0.4); Immature Retic Fraction 14.4 % (2.3-13.4); Lymphocytes Absolute Auto 1.5 X10*3/uL (1.2-4.9); Lymphocytes Percent Auto 29.4 % (20-40); Mean Corpuscular HGB Conc 31.4 g/dl (31.0-36.0); Mean Corpuscular Hemoglobin 29.1 pg (27.0-33.0); Mean Corpuscular Volume 92.7 fL (80.0-98.0); Mean Platelet Volume 9.9 fL (9.4-12.4); Monocytes Absolute Auto 0.3 X10*3/uL (0.1-1.2); Monocytes Percent Auto 5.8 % (2-11); Neutrophils Absolute Auto 3.2 x10*3/uL (2.0-8.3); Neutrophils Percent Auto 61.3 % (45-73); Platelet Count 243 X10*3/uL (160-400); Red Cell Distribution Width 12.8 % (11.0-16.0); Retic HGB Equivalent 31.2 pg (30.0-35.0); Reticulocytes Absolute 0.045 X10*6/uL (0.026-0.095); White Blood Count 5.2 X10*3/uL (4.8-10.8)
[2024-12-24 13:09] LABS: Blood Urea Nitrogen 18 mg/dL (9-16); Estimated Glomerular Filt Rate > 60
[2024-12-24 13:11] LABS: Alanine Aminotransferase 18 U/L (0-40); Albumin Level 4.2 g/dL (3.5-5.0); Alkaline Phosphatase 50 U/L (39-117); Anion Gap 8 (12-20); Aspartate Amino Transferase 20 U/L (5-37); Bilirubin Total 0.4 mg/dL (0.0-1.0); Blood Urea Nitrogen 18 mg/dL (9-16); Calcium 9.2 mg/dL (8.4-10.2); Carbon Dioxide 32 mmol/L (22-29); Chloride 106 mmol/L (96-108); Estimated Glomerular Filt Rate > 60; Glucose Random 102 mg/dL (60-115); Iron 91 mcg/dL (45-160); Percent Iron Saturation 29 % (15-50); Potassium 4.9 mmol/L (3.3-5.1); Sodium 141 mmol/L (135-145); Total Iron Binding Capacity 312 mcg/dL (228-428); Total Protein 6.4 g/dL (6.5-8.0); Unsaturated Iron Binding 221 ug/dL
[2024-12-24 13:25] LABS: Thyroid Stimulating Hormone 1.85 uIU/mL (0.32-4.0)
[2024-12-24 13:27] LABS: Ferritin 81 ng/mL (20-250); Free T4 (Free Thyroxine) 0.99 ng/dL (0.71-1.85)
[2024-12-24 13:39] LABS: Vitamin B12 474 pg/mL (200-900)
== END 2024-12-24 11:54 | disposition home or self-care (01) ==
LOC: HO.LAB 11:53
PROVIDERS: PCP Internal Medicine; Visit Provider Internal Medicine Gastroenterology
DX: C18.7 Malignant neoplasm of sigmoid colon (principal)
CPT/HCPCS: 36415; 80053; 82565; 82607; 82728; 82746; 83540; 84439; 84443; 84520; 85025; 85045

== ENCOUNTER 2025-01-19 10:42 | Outpatient (REF) | payer MEDICARE, SELFPAY ==
--- NOTE | ~2025-01-19 | CT_ITS ---
EXAMINATION: CT ABDOMEN PELVIS WITH IV CONTRAST HISTORY: OTHER FECAL ABNORMALITIES COMPARISON: Comparison is made with the prior examination dated 04/13/2024. TECHNIQUE: CT scan of the abdomen and pelvis was performed following administration of 85 mL Omnipaque 350 using standard departmental protocol. Coronal and sagittal reformatted images were generated and reviewed. Oral contrast material was not administered at the request of the referring physician. This CT exam was performed with one or more of the following dose reduction techniques: automated exposure control, adjustment of the mA and/or kV according to patient size, use of iterative reconstruction technique. DLP: 444 mGy-cm FINDINGS: LOWER CHEST: The visualized lung bases are clear. There is no pleural effusion. CARDIOVASCULATURE: The heart is normal in size. There is no pericardial effusion. LIVER: The liver is normal in size and contour. Again seen are subcentimeter probable cysts in the left lobe. The hepatic and portal veins are patent. GALLBLADDER / BILE DUCTS: The gallbladder is unremarkable. There is no intra or extrahepatic biliary ductal dilatation. SPLEEN: The spleen is normal in size. No focal splenic lesion is identified. PANCREAS: The pancreas is unremarkable in appearance. ADRENAL GLANDS: Within normal limits. KIDNEYS/RETROPERITONEUM: No renal calculi are identified. There is no hydronephrosis. There are multiple bilateral renal cysts measuring up to 1.2 cm on the right and 1.9 cm on the left. LYMPH NODES: No abdominal or pelvic lymphadenopathy. VASCULATURE: The abdominal aorta is normal in caliber. MESENTERY/PERITONEUM: No free fluid. No masses. There is no free intraperitoneal gas. STOMACH: The stomach is unremarkable. SMALL BOWEL: The small bowel is normal in caliber. COLON: There is diverticulosis of the sigmoid colon, without evidence of diverticulitis. APPENDIX: Normal. URINARY BLADDER/PELVIC ORGANS: The urinary bladder is collapsed, limiting evaluation. The prostate is enlarged. BONES / SOFT TISSUES: There is degenerative disc disease of the spine. CT/CT abdomen pelvis w IV con IMPRESSION: Sigmoid diverticulosis without evidence of diverticulitis. Electronically signed by: Izaiah Dalal MD 01/19/2025 12:18 PM EDT
[2025-01-19] MEDS: iohexoL 350 MG/ML 100 ML INFUS..BTL 85 ML IV (12:05)
== END 2025-01-19 10:43 | disposition home or self-care (01) ==
LOC: HO.CT 10:42
PROVIDERS: PCP Internal Medicine; Visit Provider Internal Medicine Gastroenterology
DX: R19.5 Other fecal abnormalities (principal)
CPT/HCPCS: 74177; Q9967

== ENCOUNTER → 2025-01-19 10:44 | Outpatient (BNV) | payer MEDICARE, SELFPAY | PROVIDERS: PCP Internal Medicine; Visit Provider Radiology Diagnostic Radiology | DX: K57.30 Diverticulosis of large intestine without perforation or abscess without bleeding (principal) | CPT/HCPCS: 74177 ==

== ENCOUNTER 2025-02-02 06:09 | Day surgery (SDC) | payer MEDICARE, SELFPAY ==
--- NOTE | 2025-02-01 14:40 | HO.ANESPROP2 ---
Documented by User: Trista Herrera NP 02/01/25 14:41 HPI - Anesthesia Eval Consult details Narrative: 69 yr old male for colonoscopy s/p colonoscopy 07/2024 [facility] Active Problems Active Problems: All Active Problems Right hip pain (Acute) Pre-op examination (Acute) Positive colorectal cancer screening using Cologuard test (Acute) Annual physical exam (Acute) Primary osteoarthritis, right shoulder (Acute) Shoulder tendinitis (Acute) Hypertension (Acute) Colonoscopy refused (Acute) Colon cancer (Acute) Tinnitus (Acute) Impaired glucose tolerance (Acute) Obesity (BMI 30-39.9) (Acute) Psoriasis (Acute) Hypercholesterolemia (Acute) Past Medical History Medical History HTN (hypertension) Cataracts, bilateral Colon cancer Frozen shoulder syndrome Skin tag Tinnitus Blood pressure elevated without history of HTN Impaired glucose tolerance Vitamin D deficiency Obesity (BMI 30-39.9) Psoriasis Hypercholesterolemia Family History Family history of problems with anesthesia: No Surgical History Surgical History H/O left cataract extraction (08/17/24) Hx of colonoscopy (07/29/24) History of Problems with Anesthesia: No Social History Social History Household Members: Spouse Housing: House Are you a primary career coordinator to a significant other at home: No Do you presently have visiting nurse or other home services: No Alcohol intake: former Patient Tobacco Use Status: Former Tobacco user Tobacco use type: Cigarette Years Smoked: quit 1975 e-Cigarette/Vaping Use: Never Used Second Hand Smoke Exposure: Yes Have you been hit, kicked, punched, or otherwise hurt by someone within the past year? If so, by whom?: No Are you DNR?: No Advance Directives: No Advance Directives Information Provided: Yes service: No Current occupational status: retired Gender identity: Male Cognitive needs: No Hearing needs: No Vision needs: Yes Meds Allergies Allergy/AdvReac Type Severity Reaction Status Date / Time lisinopril Allergy Intermediate cough Verified 10/07/24 15:13 Home Medications ?Medication ?Instructions ?Recorded ?Confirmed ?Last Taken ?Type folic acid 1 mg tablet 1 mg PO DAILY 12/27/20 02/02/25 Unknown History methotrexate sodium 2.5 mg tablet 7.5 mg PO QWEEK 12/27/20 02/02/25 01/29/25 History multivitamin 1 tab PO DAILY 07/22/23 02/02/25 Unknown History timolol maleate 0.5 % eye gel 1 drp ophthalmic (eye) QAM 02/02/25 02/02/25 02/02/25 History forming solution Exam Narrative Narrative: EKG 07/2024 NSR, with PACs, rate 80 Assessment and Plan Final Anesthetic Review Family History of Problems with Anesthesia: No History of Problems with Anesthesia: No Documented by User: Christian Meadows MD 02/02/25 07:22 [facility] Past Medical History Medical History HTN (hypertension) Cataracts, bilateral Colon cancer Frozen shoulder syndrome Skin tag Tinnitus Blood pressure elevated without history of HTN Impaired glucose tolerance Vitamin D deficiency Obesity (BMI 30-39.9) Psoriasis Hypercholesterolemia Functional capacity: independent ambulation Surgical History Surgical History H/O left cataract extraction (08/17/24) Hx of colonoscopy (07/29/24) Social History Social History Household Members: Spouse Housing: House Are you a primary career coordinator to a significant other at home: No Do you presently have visiting nurse or other home services: No Alcohol intake: former Patient Tobacco Use Status: Former Tobacco user Tobacco use type: Cigarette Years Smoked: quit 1976 e-Cigarette/Vaping Use: Never Used Second Hand Smoke Exposure: Yes Have you been hit, kicked, punched, or otherwise hurt by someone within the past year? If so, by whom?: No Are you DNR?: No Advance Directives: No Advance Directives Information Provided: Yes service: No Current occupational status: retired Gender identity: Male Cognitive needs: No Hearing needs: No Vision needs: Yes Meds Allergies Allergy/AdvReac Type Severity Reaction Status Date / Time lisinopril Allergy Intermediate cough Verified 10/07/24 15:13 Home Medications ?Medication ?Instructions ?Recorded ?Confirmed ?Last Taken ?Type folic acid 1 mg tablet 1 mg PO DAILY 12/27/20 02/02/25 Unknown History methotrexate sodium 2.5 mg tablet 7.5 mg PO QWEEK 12/27/20 02/02/25 01/29/25 History multivitamin 1 tab PO DAILY 07/22/23 02/02/25 Unknown History timolol maleate 0.5 % eye gel 1 drp ophthalmic (eye) QA 02/02/25 02/02/25 02/02/25 History forming solution Exam Exam Date and Time: 02/03/2024 Airway Mallampati Class: II TM Dist: >3cm Neck ROM: Full Heart: rrr Lungs: cta Other: normal Assessment and Plan Final Anesthetic Review NPO: Yes ASA Class: II Final Preanesthetic Review: No Changes in Pt Med Stat, Meds/Allgs Chart Reviewed, Consent Obtained/Reviewed and Anes Risks/Benef Reviewed Patient Risk: Low Procedure Risk: Low Anesthetic Plan Anesthetic Plan: MAC: Disposition: Standard PACU
[2025-02-02 06:30] VITALS: BMI 30.8
[2025-02-02 06:32] VITALS: BP 150/81; PULSE 65; RESP 18; TEMP 36.4; O2SAT 96; BMI 31.2
--- NOTE | 2025-02-02 07:41 | P.HPSUR_ITS ---
Pre-Procedural Eval Section A - 24 Hr Update-Section A only Date of Service: 02/02/25 Section B - Complete if H&P > 30 days Chief Complaint: Malignant neoplasm of colon, unspecified Relevant Family History (Specify if Yes): No Relevant Social History: None Present Medications: see Short Stay Collaborative assessment Medical History: Significant History (HTN (hypertension) Cataracts, bilateral Colon cancer Frozen shoulder syndrome Skin tag Tinnitus Blood pressure elevated without history of HTN Impaired glucose tolerance Vitamin D deficiency Obesity (BMI 30-39.9) Psoriasis Hypercholesterolemia) History of Previous Operations: Relevant previous surgery/procedure and date(s) ( H/O left cataract extraction (08/17/24) Hx of colonoscopy (07/29/24)) Allergies: Allergies Allergy/AdvReac Type Severity Reaction Status Date / Time lisinopril Allergy Intermediate cough Verified 10/07/24 15:13 Review of Systems Sugical H&P ROS: Negative: Constitution, Cardiovascular, Respiratory, Neurological, Psychiatric, Hem-Onc, Allergic/Immunologic, Gastrointestinal, Ge nitourinary, Musculoskeletal, Integumentary, Endocrine and Eyes/Ears/Nose/Throat Exam Surgical H&P Exam: Normal: HEENT, Normal: Heart, Normal: Lungs, Normal: Extremities, Normal: Abdomen, Normal: Skin and Normal: Neurological Plan Diagnosis/Plan: Unchanged I have reviewed the history and physical and performed a pertinent physical examination on my patient. No changes have occurred unless specified. Time Spent With Patient Time: Total time managing care of this patient today ____ minutes.
--- NOTE | 2025-02-02 08:06 | HO.OPN-COLON ---
Colonoscopy Operative Note Operative Note Date of Service: 02/02/25 Narrative: Operative Information Procedure Description: Colonoscopy Indication: polyps Anesthesia: MAC COLONOSCOPY Instrument: Olympus variable stiffness pediatric scope 190L Colonoscopy Monitoring: Vital signs and clinical assessment, continuous EKG monitoring, Pulse oximetry, Carbon Dioxide monitoring and blood pressure monitoring were done throughout the procedure. Colon withdrawal time was 15 minutes. Procedure: The patient was placed in the left lateral decubitis position and pre-procedure medications were administered. After a digital rectal examination of the ano-rectum, the video colonoscope was inserted into the rectum and advanced through the colon to the cecum/TI. The colonoscope was slowly withdrawn in a retrograde panoramic fashion and the colon mucosa was carefully examined including a retroflexed view of the rectum. Findings and interventions are described below. Procedure Difficulty: easy Findings: Terminal Ileum-normal Cecum: 8-9 mm flat polyp raised with eleview and removed with cold snare, x1 sessile polyp 4-6 mm removed with cold forceps Ascending Colon: 8-9 mm sessile polyp removed with cold snare Transverse Colon -normal Descending Colon:normal Sigmoid Colon: moderate diverticulosis, x 1 sessile polyp 5-6 mm removed with cold snare Rectum: Retroflexion with small internal hemorrhoids seen, grade I Anorectum - normal Intervention: cold snare, eleview for EMr, cold forceps Colon preparation: Ferron Bowel Preparation Scale Right colon; 2 Transverse colon: 2 Left colon; 2 (0 = Unprepared colon segment with mucosa not seen due to solid stool that cannot be cleared. 1 = Portion of mucosa of the colon segment seen, but other areas of the colon segment not well seen due to staining, residual stool and/or opaque liquid. 2 = Minor amount of residual staining, small fragments of stool and/or opaque liquid, but mucosa of colon segment seen well. 3 = Entire mucosa of colon segment seen well with no residual staining, small fragments of stool or opaque liquid) Impression and Post Procedure Diagnosis: diverticulosis colon polyps x 4 internal hemorrhoids Plan: High fiber diet leaflet Avoid straining at stool, epsom salts and sitz bath, anusol supps or cream Repeat Colonoscopy in 1-2 years or earlier if clinically indicated Above findings were reviewed with the patient and relevant handouts were provided if indicated.
[2025-02-02 08:13] VITALS: BP 113/64; PULSE 65; RESP 18; TEMP 36.3; O2SAT 95
[2025-02-02 08:28] VITALS: BP 148/77; PULSE 65; RESP 16; TEMP 36.2; O2SAT 95
== END 2025-02-02 08:58 | disposition home or self-care (01) ==
PROVIDERS: PCP Internal Medicine; Visit Provider Internal Medicine Gastroenterology
PROC: 0DJD8ZZ Inspection of Lower Intestinal Tract, Via Natural or Artificial Opening Endoscopic (ICD-10-PCS; CPT 45378; principal; 2025-02-02 07:30)
DX: Z12.11 Encounter for screening for malignant neoplasm of colon (principal); Z86.0101 Personal history of adenomatous and serrated colon polyps; C18.7 Malignant neoplasm of sigmoid colon; D12.0 Benign neoplasm of cecum; D12.2 Benign neoplasm of ascending colon; K57.30 Diverticulosis of large intestine without perforation or abscess without bleeding; K64.0 First degree hemorrhoids; I10 Essential (primary) hypertension; E78.00 Pure hypercholesterolemia, unspecified; E55.9 Vitamin D deficiency, unspecified; R73.02 Impaired glucose tolerance (oral); L40.9 Psoriasis, unspecified; H93.19 Tinnitus, unspecified ear; E66.9 Obesity, unspecified; Z68.31 Body mass index [BMI] 31.0-31.9, adult; Z79.899 Other long term (current) drug therapy; Z88.8 Allergy status to other drugs, medicaments and biological substances; Z87.891 Personal history of nicotine dependence
CPT/HCPCS: 45385; 45380; 45381; 88305; J2003; J2704; J3010

== ENCOUNTER → 2025-02-02 06:09 | Outpatient (BNV) | payer MEDICARE, SELFPAY | PROVIDERS: PCP Internal Medicine; Visit Provider Internal Medicine Gastroenterology | DX: Z12.11 Encounter for screening for malignant neoplasm of colon (principal); R19.5 Other fecal abnormalities; D12.0 Benign neoplasm of cecum; D12.2 Benign neoplasm of ascending colon; D12.5 Benign neoplasm of sigmoid colon; K57.30 Diverticulosis of large intestine without perforation or abscess without bleeding; K64.0 First degree hemorrhoids | CPT/HCPCS: 45381; 45385 ==

== ENCOUNTER 2025-05-06 15:36 | Outpatient (AMB) | payer MEDICARE, SELFPAY ==
--- NOTE | 2025-05-06 16:14 | MHC.PC.OV ---
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 Accompanied by: Self / Same As Patient Allergies lisinopril Allergy (Intermediate, Verified 05/06/25 16:15) cough Medication List - Last Reconciled 05/06/25 by Brooklynn Chavarria MD ciclopirox 8% 1 appl topical BEDTIME 12 weeks folic acid 1 mg PO DAILY losartan 100 mg PO DAILY methotrexate sodium 7.5 mg PO QWEEK multivitamin 1 tab PO DAILY pravastatin 40 mg PO DAILY timolol maleate 0.5% 1 drp ophthalmic (eye) QAM Tobacco use date assessed: 05/06/25 Fall risk assessment: No Falls in past year Last assessed Fall Risk: 05/06/25 Dental Screening Dental Screen Date: 05/06/25 Did you have a dental visit in the last 12 months?: No Did you have a dental problem in the last 6 months where you did not have access to dental care?: No Was dental information given to patient?: No PFSH Medical History HTN (hypertension) Cataracts, bilateral Colon cancer Frozen shoulder syndrome Skin tag Tinnitus Blood pressure elevated without history of HTN Impaired glucose tolerance Vitamin D deficiency Obesity (BMI 30-39.9) Psoriasis Hypercholesterolemia Surgical History H/O left cataract extraction (08/17/24) Hx of colonoscopy (07/29/24) Social History Household Members: Spouse Housing: House Are you a primary transitions rn care coordinator to a significant other at home: No Do you presently have visiting nurse or other home services: No Alcohol intake: former Patient Tobacco Use Status: Former Tobacco user Tobacco use type: Cigarette Years Smoked: quit 1975 e-Cigarette/Vaping Use: Never Used Second Hand Smoke Exposure: Yes service: No Current occupational status: retired Gender identity: Male Cognitive needs: No Hearing needs: No Vision needs: Yes Questionnaire Thrive Questionnaire Date Thrive assessed: 07/24/24 I am a: Patient What is your living situation today?: I have a steady place to live Within the past 12 months, did the food you bought not last and you didn't have the money to get more?: Never true Within the past 12 months, did you worry whether your food would run out before you got money to buy more?: Never true Do you have trouble paying for medicines?: No Do you have trouble getting transportation to medical appointments?: No Do you have trouble paying your heating and electricity bill?: I choose not to answer this question Do you have trouble taking care of your child, family member or friend?: No Do you have trouble with day-to-day activities such as bathing, preparing meals, shopping, managing finances, etc.?: No Are you currently unemployed and looking for a job?: No Are you interested in more education?: No Please select the resources that you would like help with: None Currently or been in a relationship where the following occur: No concerns reported THRIVE Score: 0 AUDIT C Alcohol Use Questionnaire (AUDIT-C) 1. How often do you have a drink containing alcohol?: Never 3. How often do you have six or more drinks on one occasion?: Never Total Score: 0 TAMRA-7 AMB Questionnaire TAMRA-7 Date TAMRA - 7 assessed: 07/24/24 Source: Developed by Drs. Izaiah Peterson, Rahel Webster, Oli Canales and colleagues, with an educational akua from [employer]. Physical exam (Primary Care) Vital Signs: Last Vital Signs Pulse 78 05/06/25 16:15 BP 130/80 05/06/25 16:15 Pulse Ox 93 05/06/25 16:15 Oxygen Delivery Method Room Air 05/06/25 16:15 BMI result Body Mass Index 32.2 Tobacco/Smoking Status: Tobacco use Status Tobacco use date assessed 05/06/25 05/06/25 16:22 Patient Tobacco Use Status Former Tobacco user 05/06/25 16:22 Tobacco use type Cigarette 05/06/25 16:22 e-Cigarette/Vaping Use Never Used 05/06/25 16:22 Thrive Assessment: Date of Thrive Assessment Date Thrive assessed 07/24/24 05/06/25 16:22 Currently or been in a relationship where the following occur: No concerns reported Const General: alert; No acute distress Eyes Conjunctivae: conjunctivae normal Resp Auscultation: clear to auscultation bilaterally Cardio Rate: regular rate Rhythm: regular rhythm GI Inspection: Yes normal to inspection Extrem General: Yes normal to inspection and No edema Coding Level of Care Code Est Pt Level 4 (81228) Complex EM visit Add On G2211 Diagnoses Impaired glucose tolerance R73.02 Obesity (BMI 30-39.9) E66.9 Primary hypertension I10 Hypertension type: primary hypertension Hypercholesterolemia E78.00 Malignant neoplasm of sigmoid colon C18.7 Colon location: sigmoid Hearing loss, left H91.92 Vision changes H53.9 Onychomycosis B35.1 Assessment & Plan Assessment & Plan (1) Impaired glucose tolerance: Code(s): R73.02 - Impaired glucose tolerance (oral) Category: Medical Plan: Decrease the amount of carbohydrate intake, pasta, bread, rice and potatoes are all sugar and that is aside from all the sweet stuff, remember that fruits are good but they are Sweet also. (2) Obesity (BMI 30-39.9): Code(s): E66.9 - Obesity, unspecified Category: Medical Plan: Diet and exercise (3) Hypertension: Code(s): I10 - Essential (primary) hypertension Category: Medical Qualifiers: Hypertension type: primary hypertension Qualified Code(s): I10 - Essential (primary) hypertension Plan: Continue with blood pressure medication. Decrease salt intake and exercise patient is taking losartan 100 mg once a day (4) Hypercholesterolemia: Code(s): E78.00 - Pure hypercholesterolemia, unspecified Category: Medical Plan: Avoid fried foods, chicken skin, eggs, butter margarine, pastries and meat. Be it pork or beef they have a lot of cholesterol LDL goal of less than 130 and triglyceride of less than 150 on pravastatin 40 (5) 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/January 2025 Code(s): C18.9 - Malignant neoplasm of colon, unspecified Category: Medical Qualifiers: Colon location: sigmoid Qualified Code(s): C18.7 - Malignant neoplasm of sigmoid colon Plan: Colonoscopy just done in January 2025 advised repeat in 1 year (6) Hearing loss, left: Code(s): H91.92 - Unspecified hearing loss, left ear Category: Medical (7) Vision changes: Code(s): H53.9 - Unspecified visual disturbance Category: Medical (8) Onychomycosis: Code(s): B35.1 - Tinea unguium Category: Medical Plan History of Present Illness The patient is a 69-year-old male presenting for a follow-up visit. The patient has a history of psoriasis, hypercholesterolemia, impaired glucose tolerance, and hypertension. He was last seen in September 2024 and had a colonoscopy in January 2025, which revealed a tubular adenoma. Due to the presence of polyps, a repeat colonoscopy was advised in 1 to 2 years. Recent blood work from December showed mild anemia with hemoglobin at 13.1 g/dL and hematocrit at 41.7%. Electrolytes and renal function were within normal limits, with a creatinine level of 1.07 mg/dL. Blood glucose was 102 mg/dL, and liver function tests were normal. The patient's last cholesterol test in May 2024 showed a level of 126 mg/dL. He is currently on pravastatin 40 mg for cholesterol management, with a goal LDL of less than 130 mg/dL and triglycerides less than 150 mg/dL. The patient reports hearing loss, particularly in the left ear, which has been ongoing for several years. 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 A hearing test was recommended to assess the extent of hearing loss. The patient also reports onychomycosis, which causes pain in the corners of the nails. He has been advised to use Penlac, a topical antifungal treatment, although its efficacy is limited. 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 - Exercise: Reports being always active, though not following a regular exercise regimen Review of Systems - Cardiovascular: Denies chest pain or palpitations - Respiratory: Denies cough or dyspnea - Neurological: Reports hearing loss in the left ear, denies headaches or dizziness - Dermatological: Reports onychomycosis with pain in nail corners Physical Exam - Ears: No pain upon manipulation, hearing loss noted in the left ear Results - Labs: Hemoglobin 13.1 g/dL, Hematocrit 41.7%, Creatinine 1.07 mg/dL, Blood glucose 102 mg/dL, Cholesterol 126 mg/dL - Procedures: Colonoscopy in January 2025 showing tubular adenoma Plan Patient was informed and verbally consented to the use of an ambient scribe for clinic note documentation during this visit. 1. Psoriasis Psoriasis management was not specifically discussed during this visit, but it remains a chronic condition requiring ongoing dermatological care. 2. Hypercholesterolemia The patient is on pravastatin 40 mg with a target LDL of less than 130 mg/dL and triglycerides less than 150 mg/dL. Regular monitoring of cholesterol levels is advised. 3. Impaired Glucose Tolerance The patient's blood glucose level was 102 mg/dL. Continued monitoring and lifestyle modifications, including diet and exercise, are recommended to manage glucose levels. 4. Hypertension The patient is currently taking losartan 100 mg daily for hypertension management. Blood pressure monitoring and adherence to medication are essential. 5. Tubular Adenoma A colonoscopy in January 2025 revealed a tubular adenoma. Due to the presence of polyps, a repeat colonoscopy is advised in 1 to 2 years. 6. Mild Anemia The patient has mild anemia with a hemoglobin level of 13.1 g/dL. Further evaluation may be necessary if symptoms persist or worsen. 7. Hearing Loss The patient reports hearing loss, particularly in the left ear, likely due to noise exposure. A hearing test is recommended to assess the extent of the loss. 8. Onychomycosis The patient reports onychomycosis with pain in the nail corners. Penlac, a topical antifungal, has been prescribed, though its efficacy is limited. Discussion Notes During the visit, we discussed the management of the patient's hypercholesterolemia with pravastatin and the importance of regular cholesterol monitoring. We also addressed the need for a repeat colonoscopy due to the presence of tubular adenoma. The patient was advised to continue with losartan for hypertension and to monitor blood pressure regularly. A hearing test was recommended to evaluate the reported hearing loss. For onychomycosis, Penlac was prescribed, and the patient was informed about its limited efficacy. We also discussed the importance of maintaining an active lifestyle and monitoring blood glucose levels. Patient Instructions - Continue taking pravastatin and monitor cholesterol levels regularly. - Schedule a repeat colonoscopy in 1 to 2 years. - Continue taking losartan and monitor blood pressure regularly. - Schedule a hearing test to assess hearing loss. - Apply Penlac as directed for onychomycosis. - Maintain an active lifestyle and monitor blood glucose levels. Orders: Orders Complete Blood Count Auto Diff Today I10 - Essential (primary) hypertension Comprehensive Met. Panel Today I10 - Essential (primary) hypertension Ferritin Today I10 - Essential (primary) hypertension Vitamin B12 and Folate Today I10 - Essential (primary) hypertension Prostate Specific Antigen Scr Today I10 - Essential (primary) hypertension Free T4 (Free Thyroxine) Today I10 - Essential (primary) hypertension Hemoglobin A1c Today I10 - Essential (primary) hypertension Lipid Panel Today E78.00 - Pure hypercholesterolemia, unspecified, I10 - Essential (primary) hypertension IRON PROFILE Today I10 - Essential (primary) hypertension Reticulocyte Count Today I10 - Essential (primary) hypertension Thyroid Stimulating Hormone Today I10 - Essential (primary) hypertension Referrals Speech and Hearing Referral H91.92 - Unspecified hearing loss, left ear Ophthalmology Referral H53.9 - Unspecified visual disturbance Medications: New ciclopirox 8% 1 appl topical BEDTIME 6.6 mL 1RF 12 weeks B35.1 - Tinea unguium"
[2025-05-06 16:15] VITALS: BP 130/80; PULSE 78; O2SAT 93; BMI 32.2
== END 2025-05-06 16:50 | disposition home or self-care (01) ==
LOC: HO.HMCH 15:37
PROVIDERS: PCP Internal Medicine; Visit Provider Internal Medicine
DX: R73.02 Impaired glucose tolerance (oral) (principal); E66.9 Obesity, unspecified; C18.7 Malignant neoplasm of sigmoid colon; Z68.32 Body mass index [BMI] 32.0-32.9, adult; I10 Essential (primary) hypertension; E78.00 Pure hypercholesterolemia, unspecified; H91.92 Unspecified hearing loss, left ear; H53.9 Unspecified visual disturbance; B35.1 Tinea unguium

== ENCOUNTER → 2025-05-06 15:36 | Outpatient (BNVA) | payer MEDICARE, SELFPAY | PROVIDERS: PCP Internal Medicine; Visit Provider Internal Medicine | DX: R73.02 Impaired glucose tolerance (oral) (principal); E66.9 Obesity, unspecified; I10 Essential (primary) hypertension; E78.00 Pure hypercholesterolemia, unspecified; C18.7 Malignant neoplasm of sigmoid colon; H91.92 Unspecified hearing loss, left ear; H53.9 Unspecified visual disturbance; B35.1 Tinea unguium; L40.9 Psoriasis, unspecified; D64.9 Anemia, unspecified; Z68.32 Body mass index [BMI] 32.0-32.9, adult | CPT/HCPCS: 99212 ==